=== PATIENT | female | born 1975 | race Hispanic/Latino ===

== ENCOUNTER 2019-04-21 22:49 | Emergency (ER) | payer SELFPAY ==
[2019-04-21] MEDS ORDERED: KETOROLAC 30 MG/ML INJ ONE (23:44)
[2019-04-21] MEDS ORDERED: MAGNESIUM CITRATE 300 ML BOT ONE (23:45)
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
[2019-04-22 02:01] VITALS: TEMP 98.7; O2SAT 100
[2019-04-22 02:04] VITALS: BP 189/109
--- NOTE | 2019-04-22 07:59 | RAD REPORT ---
EXAM DESCRIPTION: Susana Single View04/21/2019 11:42 pm CLINICAL HISTORY: Chest pain COMPARISON: none FINDINGS: The lungs appear clear of acute infiltrate. The heart is normal size IMPRESSION: No acute abnormalities displayed
== END 2019-04-22 00:45 | disposition home or self-care (01) ==
LOC: ER 22:49
DX: K59.00 Constipation, unspecified (principal)
CPT/HCPCS: 71045; 96372; 99283

== ENCOUNTER 2020-02-03 15:40 | Inpatient (IN) | payer SELFPAY ==
[2020-02-03] MEDS ORDERED: ONDANSETRON 4 MG/2 ML VIAL ONE (17:08)
[2020-02-03] MEDS ORDERED: MORPHINE 4 MG/ML SYR ONE ×2 (17:08→20:01)
[2020-02-03 17:15] LABS: Absolute Lymphocytes (CBC) 1.3 K/uL (0.7-4.9); Basophils % 0.5 % (0-1.3); Hematocrit 36.8 % (36.0-45.0); Lymphocytes % 15.3 % (15.3-44.8); MPV 8.9 fL (7.6-11.3); RBC Red Blood Cell Count 4.38 M/uL (3.86-4.86)
[2020-02-03 17:21] LABS: Albumin 3.5 g/dL (3.4-5.0); Bilirubin Total 0.2 mg/dL (0.2-1.0); Potassium 3.2 mmol/L (3.5-5.1); Protein, Total 8.2 g/dL (6.4-8.2)
--- NOTE | 2020-02-03 18:24 | P.HP ---
Certification for Inpatient Patient admitted to: Inpatient With expected LOS: >2 Midnights Patient will require the following post-hospital care: None Practitioner: I am a practitioner with admitting privileges, knowledge of patient current condition, hospital course, and medical plan of care. Services: Services provided to patient in accordance with Admission requirements found in Title 42 Section 412.3 of the Code of Federal Regulations Patient History Date of Service: 02/04/20 Reason for admission: Pain in Breast History of Present Illness: 44-year-old female with past medical history of diabetes, hypertension, hyperlipidemia, hypothyroidism, anxiety with panic attacks came with the pain and swelling in both the breasts which has been going on for the last 2 weeks and has been progressively worsening. Pain and swelling initially started and left breast associated with redness and discharge coming out of the wound on the left breast. Denies any previous history, she is not lactating, patient also developed pain and swelling in the right breast as well, no fever no chills, no nausea vomiting or diarrhea Patient was examined in the ER and was found to have cellulitis of the right breast and cellulitis with abscess collection on the left breast and was admitted for further management Allergies No Known Allergies Allergy (Verified 02/03/20 21:41) Home medications list reviewed: Yes - Past Medical/Surgical History Diabetic: Yes Past Medical History: Reviewed- Non-Contributory -: anemia-december 2012, also in 2011 -: DM -: HTN Past Surgical History: Reviewed- Non-Contributory -: tubal ligation-[place] [facility] 2002 - Family History Family History: Reviewed- Non-Contributory - Social History Smoking Status: Never smoker Alcohol use: Yes CD- Drugs: No Caffeine use: Yes Review of Systems 10-point ROS is otherwise unremarkable Physical Examination - Vital Signs Temperature: 98.2 F Blood Pressure: 133/88 Pulse: 89 Respirations: 18 - Physical Exam General: Alert, In no apparent distress, Oriented x3 HEENT: Atraumatic, Normocephalic Neck: Supple, 2+ carotid pulse no bruit Respiratory: Clear to auscultation bilaterally, Normal air movement Cardiovascular: Normal pulses, Regular rate/rhythm Capillary refill: <2 Seconds Gastrointestinal: Soft and benign, W/out hepatosplenomegaly Musculoskeletal: No clubbing, No swelling Integumentary: Rash(es), Tenderness/swelling, Erythema, Warmth, Other (Erythema and tenderness on the right breast, erythema tenderness and induration on the left breast with seropurulent discharge along with an area of small ulceration, ) Neurological: Normal speech, Normal strength at 5/5 x4 extr Lymphatics: No axilla or inguinal lymphadenopathy - Studies Laboratory Data (last 24 hrs) 02/03/20 16:55: Sodium 142, Potassium 3.2 L, BUN 15, Creatinine 1.04, Glucose 131 H, Total Bilirubin 0.2, AST 22, ALT 32, Alkaline Phosphatase 84 02/03/20 16:55: WBC 8.8, Hgb 12.4, Hct 36.8, Plt Count 237 Assessment and Plan - Problems (Diagnosis) (1) Left breast abscess Current Visit: Yes Status: Acute (2) Cellulitis of right breast Current Visit: Yes Status: Acute (3) Diabetes Current Visit: Yes Status: Acute Qualifiers: Diabetes mellitus type: type 2 Diabetes mellitus complication status: with skin complications - Advance Directives Does patient have a Living Will: No Does patient have a Durable POA for Healthcare: No Physician Review Additional Text: Abscess left breast Cellulitis of the right breast Diabetes Hypertension Hyperlipidemia Hypothyroid is Anxiety History panic attacks Plan monitor closely pain control IV antibiotics Surgical consult will get cultures from the discharge from breast Will change antibiotic as per the sensitivity Ultrasound of the breasts Insulin sliding scale Will get an A1c Continue home medications and titrate as needed GI/DVT prophylaxis Time Spent Managing Pts Care (In Minutes): 40
--- NOTE | 2020-02-03 18:26 | RAD REPORT ---
EXAM DESCRIPTION: US - Extremity Nonvascular Limited - 02/03/2020 5:59 pm CLINICAL HISTORY: Breast pain and swelling COMPARISON: None FINDINGS: 2.5 x 1.9 x 0.9 centimeter fluid collection is present within the upper outer right breast Edema is present within the left breast. A fluid collection is not noted IMPRESSION: 2.5 centimeter fluid collection within the upper-outer right breast likely an abscess Cellulitis left breast This all should be correlated clinically. After treatment has been completed follow-up mammography if not recently obtained an ultrasound would be helpful for re-evaluation
[2020-02-03] MEDS ORDERED: ONDANSETRON 4 MG/2 ML VIAL IV PRN (18:29)
[2020-02-03] MEDS ORDERED: ACETAMINOPHEN 500 MG TAB PO PRN (18:29)
[2020-02-03] MEDS ORDERED: ZOLPIDEM TARTRATE 10 MG TABLET PO PRN (18:34)
[2020-02-03] MEDS ORDERED: ACETAMINOPHEN PO PRN (18:34)
[2020-02-03] MEDS ORDERED: HYDROCODONE PO PRN (18:34)
[2020-02-03] MEDS ORDERED: ROPINIROLE HCL 0.25 MG TAB PO PRN (20:51)
[2020-02-03] MEDS: INSULIN -REGULAR HUMAN 50 UNIT/0.5 ML ML SQ SCH (21:00)
[2020-02-03] MEDS ORDERED: VANCOMYCIN 1.5 GM in NA CHLORIDE 0.9% 500 ML IVPB SCH (22:00)
[2020-02-03] MEDS: NA CHLORIDE 0.9% 1,000 ML IV SCH (22:04)
[2020-02-03] MEDS: QUETIAPINE 100MG TAB PO SCH (22:09)
[2020-02-03] MEDS: CITALOPRAM 10 MG TABLET PO SCH (22:09)
[2020-02-03] MEDS: HYDROCODONE/APAP 7.5/325 MG TAB PO PRN (22:19)
[2020-02-03 22:54] VITALS: BMI 27.8
[2020-02-03] MEDS ORDERED: POTASSIUM CL SA 10 MEQ TAB PO ONE (23:00)
[2020-02-03] MEDS ORDERED: NA CHLORIDE 0.9% 500 ML ONE (23:18)
[2020-02-03] MEDS ORDERED: VANCOMYCIN 1 GM/VIAL ONE (23:24)
[2020-02-03] MEDS ORDERED: VANCOMYCIN 500 MG/VIAL ONE (23:25)
[2020-02-03] MEDS: VANCOMYCIN 1.5 GM in NA CHLORIDE 0.9% 500 ML IVPB SCH (23:26)
[2020-02-03] MEDS: ALPRAZOLAM 1 MG TABLET PO PRN (23:33)
[2020-02-04] MEDS ORDERED: PIPER/TAZO/NS 3.375gm 3.375 GM/100 ML BAG ONE (00:46)
[2020-02-04] MEDS: PIPER/TAZO/NS 3.375gm 3.375 GM/100 ML BAG IVPB SCH ×3 (00:53→16:19)
[2020-02-04] MEDS: NA CHLORIDE 0.9% 1,000 ML IV SCH ×3 (05:00→15:00)
[2020-02-04 05:56] LABS: Absolute Lymphocytes (CBC) 1.9 K/uL (0.7-4.9); Basophils % 0.5 % (0-1.3); Hematocrit 29.9 % (36.0-45.0); Lymphocytes % 31.1 % (15.3-44.8); MPV 8.7 fL (7.6-11.3); RBC Red Blood Cell Count 3.53 M/uL (3.86-4.86)
[2020-02-04] MEDS: LEVOTHYROXINE SOD 0.05 MG TABLET PO SCH (06:00)
[2020-02-04 06:12] LABS: Albumin 2.5 g/dL (3.4-5.0); Bilirubin Total 0.2 mg/dL (0.2-1.0); Magnesium 2.2 mg/dL (1.8-2.4); Phosphorus 4.1 mg/dL (2.5-4.9); Potassium 3.2 mmol/L (3.5-5.1)
[2020-02-04] MEDS: KCL 20 MEQ/100 mL IVPB 20 MEQ/100 ML BAG IV SCH ×2 (07:25→10:26)
[2020-02-04] MEDS: INSULIN -REGULAR HUMAN 50 UNIT/0.5 ML ML SQ SCH ×4 (07:30→20:52)
[2020-02-04] MEDS: FERROUS FUMARATE PO SCH (09:00)
[2020-02-04] MEDS: ENOXAPARIN 40 MG/0.4 ML SQ SCH (09:00)
[2020-02-04] MEDS: FOLIC ACID PO SCH (09:00)
[2020-02-04] MEDS: MORPHINE 2 MG/ML SYR IV PRN (09:47)
--- NOTE | 2020-02-04 10:37 | P.PN ---
Subjective Date of Service: 02/04/20 Chief Complaint: Pain in Breast Subjective: No new changes (Still having lots of pain), Other (Still having pain No fever no chills) Review of Systems 10-point ROS is otherwise unremarkable Physical Examination - Vital Signs Temperature: 97.4 F Blood Pressure: 105/59 Pulse: 68 Respirations: 18 Pulse Ox (%): 97 - Physical Exam General: Alert, In no apparent distress HEENT: Atraumatic, Normocephalic Neck: Supple, 2+ carotid pulse no bruit Respiratory: Clear to auscultation bilaterally Cardiovascular: Normal pulses, Regular rate/rhythm Capillary refill: <2 Seconds Gastrointestinal: Soft and benign, W/out hepatosplenomegaly Musculoskeletal: No clubbing, No swelling Integumentary: Tenderness/swelling, Erythema, Warmth, Other (Left Breast tenderness and Induration , Right breast erythema and tenderness ) Neurological: Normal speech, Normal strength at 5/5 x4 extr Lymphatics: No axilla or inguinal lymphadenopathy Rectal: Deferred - Studies Laboratory Data (last 24 hrs) 02/03/20 16:55: Sodium 142, Potassium 3.2 L, BUN 15, Creatinine 1.04, Glucose 131 H, Total Bilirubin 0.2, AST 22, ALT 32, Alkaline Phosphatase 84 02/03/20 16:55: WBC 8.8, Hgb 12.4, Hct 36.8, Plt Count 237 Laboratory Last Values WBC 8.8 K/uL (4.3-10.9) 02/03/20 16:55 RBC 4.38 M/uL (3.86-4.86) 02/03/20 16:55 Hgb 12.4 g/dL (12.0-15.0) 02/03/20 16:55 Hct 36.8 % (36.0-45.0) 02/03/20 16:55 MCV 84.0 fL (80-100) D 02/03/20 16:55 MCH 28.3 pg (27.0-35.0) D 02/03/20 16:55 MCHC 33.7 g/dL (32.0-36.0) 02/03/20 16:55 RDW 15.6 % (12.1-15.2) H 02/03/20 16:55 Plt Count 237 K/uL (152-406) 02/03/20 16:55 MPV 8.9 fL (7.6-11.3) 02/03/20 16:55 Neutrophils % 73.9 % (41.7-73.7) H 02/03/20 16:55 Lymphocytes % 15.3 % (15.3-44.8) 02/03/20 16:55 Monocytes % 8.7 % (3.3-12.3) 02/03/20 16:55 Eosinophils % 1.6 % (0-4.4) 02/03/20 16:55 Basophils % 0.5 % (0-1.3) 02/03/20 16:55 Absolute Neutrophils 6.5 K/uL (1.8-8.0) 02/03/20 16:55 Absolute Lymphocytes 1.3 K/uL (0.7-4.9) 02/03/20 16:55 Absolute Monocytes 0.8 K/uL (0.1-1.3) 02/03/20 16:55 Absolute Eosinophils 0.1 K/uL (0-0.5) 02/03/20 16:55 Absolute Basophils 0.0 K/uL (0-0.5) 02/03/20 16:55 Sodium 142 mmol/L (136-145) 02/03/20 16:55 Potassium 3.2 mmol/L (3.5-5.1) L 02/03/20 16:55 Chloride 109 mmol/L (98-107) H 02/03/20 16:55 Carbon Dioxide 22 mmol/L (21-32) 02/03/20 16:55 BUN 15 mg/dL (7-18) 02/03/20 16:55 Creatinine 1.04 mg/dL (0.55-1.3) 02/03/20 16:55 Estimated GFR 58 mL/min (=/>90) L 02/03/20 16:55 Glucose 131 mg/dL (74-106) H 02/03/20 16:55 Hemoglobin A1c 6.3 % (4.2-6.3) 02/03/20 16:55 Lactic Acid 1.2 mmol/L (0.4-2.0) 02/03/20 16:55 Calcium 8.9 mg/dL (8.5-10.1) 02/03/20 16:55 Total Bilirubin 0.2 mg/dL (0.2-1.0) 02/03/20 16:55 AST 22 U/L (15-37) 02/03/20 16:55 ALT 32 U/L (12-78) 02/03/20 16:55 Alkaline Phosphatase 84 U/L (45-117) 02/03/20 16:55 Serum Total Protein 8.2 g/dL (6.4-8.2) 02/03/20 16:55 Albumin 3.5 g/dL (3.4-5.0) 02/03/20 16:55 Globulin 4.7 g/dL (2.3-3.5) H 02/03/20 16:55 Albumin/Globulin Ratio 0.7 (1.1-1.8) L 02/03/20 16:55 Procalcitonin < 0.05 ng/mL (<0.50) 02/03/20 16:55 Assessment & Plan - Problems (Diagnosis) (1) Left breast abscess Current Visit: Yes Status: Acute (2) Cellulitis of right breast Current Visit: Yes Status: Acute (3) Diabetes Current Visit: Yes Status: Acute Qualifiers: Diabetes mellitus type: type 2 Diabetes mellitus complication status: with skin complications Physician Review Additional Text: Abscess left breast Cellulitis of the right breast Diabetes Hypertension Hyperlipidemia Hypothyroid is Anxiety History panic attacks Plan monitor closely pain control IV antibiotics Surgical consult appreciated getting an incision and drainage today cultures from the discharge from breast painting Will change antibiotic as per the sensitivity Continue home medications and titrate as needed Insulin sliding scale GI/DVT prophylaxis Disposition : Getting incision and drainage today Continue antibiotic Dc once cleared by surgery Time Spent Managing Pts Care (In Minutes): 35
[2020-02-04] MEDS ORDERED: Ringers Lactate 0 ML IV ONE (10:53)
[2020-02-04] MEDS ORDERED: LIDOCAINE 2% MPF 5 ML VIAL ONE (10:54)
[2020-02-04] MEDS ORDERED: propofoL 200 MG/20 ML VIAL IV ONE (10:54)
[2020-02-04] MEDS ORDERED: MIDAZOLAM HCL 2 MG/2 ML INJ ONE (10:54)
[2020-02-04] MEDS ORDERED: NA CHLORIDE 0.9% 1,000 ML ONE (10:58)
[2020-02-04] MEDS ORDERED: BUPIVACAINE 0.5% PF 10 ML VIAL ONE ×2 (11:02→11:47)
[2020-02-04] MEDS ORDERED: FENTANYL CITR 100 MCG/2 ML ONE (11:21)
[2020-02-04] MEDS ORDERED: KETOROLAC 30 MG/ML INJ ONE (11:25)
[2020-02-04] MEDS ORDERED: dexAMETHasone 4 MG/ML VIAL ONE (11:26)
[2020-02-04] MEDS ORDERED: ONDANSETRON 4 MG/2 ML VIAL ONE (11:27)
[2020-02-04] MEDS ORDERED: BUPIVACAINE 0.25% PF 10 ML VIAL ONE (11:47)
--- NOTE | 2020-02-04 11:50 | P.BOP ---
Preoperative diagnosis: Bilateral breast Mastitis, cellulitis, abscess Postoperative diagnosis: same Primary procedure: 1. Right breast I&D complex abscess with breast biopsy Secondary procedure: 2. Left breast I&D complex abscess with breast biopsy Estimated blood loss: <10cc Specimen: bilateral breast biopsy, culture Findings: see dictatiom Anesthesia: General Complications: None Transferred to: Recovery Room Condition: Good
[2020-02-04 11:59] LABS: Urine Appearance CLEAR; Urine Blood NEGATIVE (NEG); Urine Color DK YELLOW; Urine Glucose 2+ (NEG); Urine Protein TRACE (NEG); Urine Specific Gravity >=1.030 (1.005-1.030)
[2020-02-04 12:14] LABS: Urine Bilirubin NEGATIVE (NEG); Urine Microscopic Reflex ORDER UMIC
[2020-02-04 12:34] LABS: Urine Bacteria <20 /HPF (<20); Urine Culture Reflex Order NOT NEEDED; Urine Mucus MOD /HPF (NONE SEEN); Urine RBC NONE SEEN /HPF (NONE SEEN)
--- NOTE | 2020-02-04 13:23 | OP ---
Date of Procedure: 02/04/2020 Surgeon: Olivier Jain MD Preoperative Diagnosis: Bilateral breast mastitis, cellulitis, abscess. Postoperative Diagnosis: Bilateral breast mastitis, cellulitis, and complex abscess. Procedure: 1.Incision and drainage of right breast complex abscess about 7 x 4 cm with incisional breast biopsy . 2.Incision and drainage of complex abscess left breast about 7 x 7 cm with incisional breast biopsy. Anesthesia: General plus local. Findings: Bilateral breast abscess complex, multiple loculations. Purulent discharge. Indications: This is a case of a 44-year-old patient who come with bilateral breast cellulitis and a bscess. She has been having that for the last 2 weeks, very painful, inflamed, erythematosus. Befor e that she states she did not have any masses in the breast area. The patient offered incision and d rainage of bilateral breast abscess with biopsies with benefits, alternatives, and risks including, b ut not limited to infection, bleeding, damage to adjacent structures, anesthesia complication, nonhea ling wound, MT, and even . She also understands this may not relieve the symptoms. She might n eed more than one surgical intervention. She will require wound care. She still have to do her mamm ogram and checked with the certified medical technician or primary doctor for malignancy even if the biopsy comes kenny k negative. She understood, signed a consent. Description Of Procedure: Patient was brought to the operating room, placed in supine position and a nesthesia was done without complication. A time-out was called. Bilateral breast area was prepped a nd draped in sterile fashion. Local anesthesia was applied followed by sharp incision of the skin, r emoving the necrotic tissue first of the left breast that led us into a complex abscess cavities with multiple loculations, so they were explored, opened, culture. The tissue was removed from the breas t, sent for biopsy. Profuse irrigation was done in the area. Hemostasis was obtained. The area was packed with wet-to-dry dressing. Then, we went to the opposite side from the left and moved to the right side. Once again, we put local anesthetic. We made a wide incision over the area to get into the abscess which shows multiple loculations that were explored, opened, irrigated and hemostasis obt ained. We packed the area with wet-to-dry dressing. Sponge count and instrument counts were correct . The patient tolerated the procedure well. Patient was sent to recovery in stable condition. HM/BEAN Voice ID: [id number] Report ID: [id number]
--- NOTE | 2020-02-04 15:55 | CON ---
Date of Consultation: 02/03/2020 Diagnosis: Bilateral breast cellulitis and abscess. History Of Present Illness: This is a case of a 44-year-old patient, comes to us with bilateral [address] st inflammation, redness, ulceration, purulent discharge. She thinks it happened after insect bite. She does not remember any trauma, any dysuria, hematuria, hematochezia, or melena. She does not rem ember her last mammogram time. Allergies: NONE. Medical Problems: Diabetes, hypertension, hyperlipidemia, anxiety, hypothyroidism, panic attack. Medications: Reviewed including Xanax, Celexa, Ambien, Seroquel, Requip, Vicodin. Social History: She does not smoke. She does not drink alcohol. Past Surgical History: Tubal ligation. Family History: Noncontributory. Review of Systems: Ten points otherwise unremarkable. Physical Examination: General: Patient is awake and alert. HEENT: Pupils are equal and reactive, anicteric. Neck: Supple. Chest: Clear. Heart: S1, S2. Abdomen: Soft and depressible. Breasts: Bilateral breasts erythema, left more than right. Induration present. Tenderness and fluc tuance present. There is already purulent discharge coming from the left and right breast. This is just the entire breast area. Physical exam is limited due to tenderness. Axillary area, no palpable masses. Pelvic: Deferred. Extremities: Good capillary refill. Laboratory Data: Blood work shows WBC count of 6.2, hemoglobin of 10.4. Potassium 3.2. Ultrasound shows a 2.5 fluid collection within the right breast with cellulitis present on the left b reast. Assessment: This is a 44-year-old patient with bilateral breast cellulitis and abscess. On palpatio n, present purulent discharge from the left breast. Even the ultrasound described a big abscess is t here clinically and fluctuance is present on the right side. I concur also with the ultrasound, it h as an abscess in that area. The patient understands the need for incision and drainage of bilateral breast abscess with breast biopsy. Risks include, but not limited to, infection, bleeding, damage to adjacent structures, anesthesia complication, myocardial infarction, and even . She also under stands this will require wound care, wet-to-dry dressing, and they will create some deformities of th e area. This will not captured through her formal mammograms. This will not relieve any symptoms. She might need more than one surgical intervention. She understood, signed a consent. The patient w as booked in OR. CARLOS/BEAN Voice ID: [id number] Report ID: [id number]
[2020-02-04] MEDS: HYDROCODONE/APAP 7.5/325 MG TAB PO PRN ×2 (16:40→22:47)
[2020-02-04] MEDS: VANCOMYCIN 1.5 GM in NA CHLORIDE 0.9% 500 ML IVPB SCH (18:23)
[2020-02-04] MEDS: QUETIAPINE 100MG TAB PO SCH (20:51)
[2020-02-04] MEDS: CITALOPRAM 10 MG TABLET PO SCH (20:51)
[2020-02-04] MEDS: ALPRAZOLAM 1 MG TABLET PO PRN (20:59)
[2020-02-05] MEDS: NA CHLORIDE 0.9% 1,000 ML IV SCH ×3 (00:17→21:00)
[2020-02-05] MEDS: PIPER/TAZO/NS 3.375gm 3.375 GM/100 ML BAG IVPB SCH ×3 (00:17→16:23)
[2020-02-05] MEDS: HYDROCODONE/APAP 7.5/325 MG TAB PO PRN ×4 (04:12→16:22)
[2020-02-05 05:46] LABS: BUN Blood Urea Nitrogen 15 mg/dL (7-18); Bicarbonate 22 mmol/L (21-32); Glucose Level 169 mg/dL (74-106); Potassium 3.9 mmol/L (3.5-5.1); Sodium Level 142 mmol/L (136-145)
[2020-02-05] MEDS: LEVOTHYROXINE SOD 0.05 MG TABLET PO SCH (06:00)
[2020-02-05] MEDS: INSULIN -REGULAR HUMAN 50 UNIT/0.5 ML ML SQ SCH ×4 (07:30→20:51)
[2020-02-05] MEDS: FERROUS FUMARATE PO SCH (07:58)
[2020-02-05] MEDS: FOLIC ACID PO SCH (07:58)
[2020-02-05] MEDS: ENOXAPARIN 40 MG/0.4 ML SQ SCH (08:11)
[2020-02-05] MEDS ORDERED: POTASSIUM CL SA 10 MEQ TAB PO ONE (09:00)
--- NOTE | 2020-02-05 11:27 | PN ---
Date of Progress Note: 02/05/2020 Patient seen and examined. Chart reviewed and case discussed with RN. Patient states she is still h aving significant amount of pain from her left breast from the cellulitis and abscess. Patient had I and D done yesterday on both sides. Medications: List reviewed. Physical Examination: Vital Signs: Temperature 97.8, heart rate 56, blood pressure 119/80, respirations 16, O2 98% on room air. General: Awake, alert, oriented x3. Slightly ill-appearing female. CV: S1, S2. Regular rate and rhythm. Peripheral pulses present. Respiratory: Moving air well bilaterally. No wheezing or stridor. No use of accessory muscles. Gastrointestinal: Abdomen is soft, nontender, nondistended. Positive bowel sounds. Extremities: No clubbing, cyanosis, or edema. 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 Patient's bilateral breasts have bandages, erythem a bilateral breasts. Incision site clean, dry, intact. Neuro: Cranial nerves 2 through 12 intact grossly. No focal neurological deficit. Speech is normal . Psych: Mood is okay. Affect is full. Insight and judgment are good. Laboratory Data: Sodium 142, potassium 3.9, chloride 114, CO2 of 22, BUN 15, creatinine 0.62, glucos e 169, calcium 7.3. Blood cultures, no growth to date. Wound cultures growing MRSA. Assessment And Plan: 44-year-old female with: 1.Right breast cellulitis and abscess 2.5 cm, status post I and D. Cultures growing out methicillin -resistant Staphylococcus aureus. Continue with intravenous antibiotics. Appreciate Dr. Jain's input. 2.Cellulitis of the left breast. Continue antibiotics. Cultures showing methicillin-resistant Stap hylococcus aureus. 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 Continue with sliding scale i nsulin. Monitor blood glucose levels. 4.Essential hypertension, stable. Continue home medications. 5.Mixed hyperlipidemia. Continue medications. Stable. 6.Hypothyroidism. Continue Synthroid. 7.Generalized anxiety disorder and panic attacks. We will continue selective serotonin reuptake inh ibitors. Plan: We will continue to monitor. Patient is still having significant amount of pain. Culture batsheva wing MRSA. Discharge in the next 24 hours depending on clinical improvement. /MODL Voice ID: [id number] Report ID: [id number]
[2020-02-05] MEDS: VANCOMYCIN 1.5 GM in NA CHLORIDE 0.9% 500 ML IVPB SCH (12:01)
--- NOTE | 2020-02-05 18:51 | PN ---
Date of Progress Note: 02/05/2020 Subjective: Status post I and D of bilateral breast abscess, doing better, no fever, tolerating diet . Objective: Intact surgical site. No purulent discharge. Plan: Checks cultures. Continue antibiotics for a week by mouth. If she gets discharged, follow up in my office in 1 week. Patient was advised about the importance of mammogram and checked again. CARLOS/BEAN Voice ID: [id number] Report ID: [id number]
[2020-02-05] MEDS: CITALOPRAM 10 MG TABLET PO SCH (20:17)
[2020-02-05] MEDS: MORPHINE 2 MG/ML SYR IV PRN (20:17)
[2020-02-05] MEDS: QUETIAPINE 100MG TAB PO SCH (20:18)
[2020-02-06] MEDS: HYDROCODONE/APAP 7.5/325 MG TAB PO PRN ×2 (00:06→08:23)
[2020-02-06] MEDS: PIPER/TAZO/NS 3.375gm 3.375 GM/100 ML BAG IVPB SCH ×2 (00:22→08:26)
[2020-02-06] MEDS: NA CHLORIDE 0.9% 1,000 ML IV SCH (00:25)
[2020-02-06 04:34] LABS: Basophils % 0.9 % (0-1.3); Hematocrit 30.3 % (36.0-45.0); Lymphocytes % 46.6 % (15.3-44.8); MPV 8.8 fL (7.6-11.3); RBC Red Blood Cell Count 3.59 M/uL (3.86-4.86)
[2020-02-06 04:48] LABS: BUN Blood Urea Nitrogen 13 mg/dL (7-18); Bicarbonate 23 mmol/L (21-32); Glucose Level 91 mg/dL (74-106); Potassium 3.4 mmol/L (3.5-5.1); Sodium Level 144 mmol/L (136-145)
[2020-02-06] MEDS: VANCOMYCIN 1.5 GM in NA CHLORIDE 0.9% 500 ML IVPB SCH (05:23)
[2020-02-06] MEDS: LEVOTHYROXINE SOD 0.05 MG TABLET PO SCH ×2 (05:23→05:25)
[2020-02-06] MEDS: MORPHINE 2 MG/ML SYR IV PRN (05:27)
[2020-02-06] MEDS ORDERED: POTASSIUM CL SA 10 MEQ TAB PO ONE (06:38)
[2020-02-06] MEDS: INSULIN -REGULAR HUMAN 50 UNIT/0.5 ML ML SQ SCH (07:30)
[2020-02-06] MEDS: ENOXAPARIN 40 MG/0.4 ML SQ SCH (08:24)
[2020-02-06 09:38] VITALS: O2SAT 92
[2020-02-06 09:54] VITALS: BP 143/92; TEMP 96.7
--- NOTE | 2020-02-06 17:15 | EDPHYS ---
Physician Documentation [facility] Name: Jelly Hooker Age: 44 yrs Sex: Female : 1975 Arrival Date: 02/03/2020 Time: 15:42 Bed 17 Private MD: ED Physician Arsalan Domingo HPI: 02/02 17:31 This 44 yrs old Female presents to ER via Ambulatory with complaints of Insect jmm Bite. 17:31 The patient presents with an abscess of the chest. Onset: The symptoms/episode jmm began/occurred gradually, 3 day(s) ago. Possible cause(s): spider bite. Associated signs and symptoms: Pertinent positives: discharge, drainage, erythema, swelling, Pertinent negatives: fever. Modifying factors: the symptoms are alleviated by nothing, the symptoms are aggravated by nothing. This is a 44 year old female with a history of DM that presents to the ED with complaints of pain and swelling to her breasts. Patient states having bites to her face as well which have healed. States wounds began to drain at her breasts today. . 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 - Social history:: Smoking status: Patient denies any tobacco usage or history of. ROS: 17:31 Constitutional: Negative for fever, chills, and weight loss, Cardiovascular: Negative jmm for chest pain, palpitations, and edema, Respiratory: Negative for shortness of breath, cough, wheezing, and pleuritic chest pain. 17:31 Skin: Positive for erythema, rash, swelling. 17:31 All other systems are negative. Exam: 17:31 Constitutional: This is a well developed, well nourished patient who is awake, alert, jmm and in no acute distress. Head/Face: atraumatic. Eyes: EOMI, no conjunctival erythema appreciated ENT: Moist Mucus Membranes Neck: Trachea midline, Supple 17:31 Cardiovascular: Regular rate and rhythm. No edema appreciated Respiratory: Normal respirations, no respiratory distress appreciated Abdomen/GI: Non distended, soft Back: Normal ROM 17:31 Chest/axilla: Breasts: abscess, cellulitis, that is moderate, of the left breast, swelling, that is moderate, that is severe, of the right breast, of the left breast. 17:31 Skin: erythema and induration appreciated to the left breast, TTP. 17:31 Neuro: Orientation: is normal, Mentation: is normal, Memory: is normal. 17:31 Psych: Behavior/mood is pleasant, cooperative. Vital Signs: 15:51 BP 133 / 88; Pulse 89; Resp 18; Temp 98.0(O); Pulse Ox 100% on R/A; ph 17:00 BP 127 / 93; Pulse 79; Resp 16 S; Pulse Ox 98% on R/A; ca1 17:59 BP 116 / 82; Pulse 69; Resp 16 S; Pulse Ox 100% on R/A; ca1 20:27 BP 125 / 88; Pulse 88; Resp 18; Temp 97.6(O); Pulse Ox 99% on R/A; aj1 MDM: 16:02 Patient medically screened. [facility] 18:02 Data reviewed: vital signs, nurses notes. Counseling: I had a detailed discussion with hudson the patient and/or guardian regarding: the historical points, exam findings, and any diagnostic results supporting the discharge/admit diagnosis, lab results, the need for further work-up and treatment in the hospital. ED course: I discussed the patient with Dr. Hung whom accepted admission. . 18:06 ED course: I discussed the patient with Dr. Jain whom will consult on admission. . [facility] 02/02 16:38 Order name: CBC with Diff; Complete Time: 17:23 [facility] 02/02 16:38 Order name: CMP; Complete Time: 17:23 [facility] 02/02 16:38 Order name: Lactate; Complete Time: 17:23 [facility] 02/02 16:38 Order name: Procalcitonin; Complete Time: 17:54 [facility] 02/02 16:38 Order name: Blood Culture Adult (2) [facility] 02/02 17:22 Order name: Blood Culture [facility] 02/02 17:22 Order name: Blood Culture [facility] 02/02 17:56 Order name: Wound Culture ca1 02/02 18:35 Order name: Urinalysis [facility] 02/02 18:35 Order name: CBC with Automated Diff [facility] 02/02 18:35 Order name: CBC with Automated Diff [facility] 02/02 18:35 Order name: Comprehensive Metabolic Panel [facility] 02/02 18:35 Order name: Comprehensive Metabolic Panel [facility] 02/02 18:35 Order name: Magnesium [facility] 02/02 16:38 Order name: Saline Lock; Complete Time: 16:59 [facility] 02/02 16:39 Order name: US Extrmty Nonvasular Limited; Complete Time: 18:27 [facility] 02/02 18:34 Order name: CONS Physician Consult [facility] 02/02 18:34 Order name: Consistent Carb (ADA) 1800 Lc [facility] 02/02 18:35 Order name: Magnesium [facility] 02/02 18:36 Order name: Phosphorus [facility] 02/02 18:36 Order name: Phosphorus [facility] 02/02 19:20 Order name: Hemoglobin A1c; Complete Time: 19:22 [facility] Administered Medications: 16:57 Drug: Zofran (Ondansetron) 4 mg Route: IVP; Site: right antecubital; ca1 17:00 Drug: morphine 4 mg {Note: RASS - 0.} Route: IVP; Site: right antecubital; ca1 19:45 Drug: morphine 4 mg Route: IVP; Site: right antecubital; aj1 Disposition: 02/03 07:43 Co-signature as Attending Physician, Arsalan Domingo MD I agree with the assessment and mykel plan of care. Disposition: 02/03/20 21:19 Hospitalization ordered by Arthur Hung for Observation. Preliminary diagnosis are Cellulitis of the Breast, Abscess of the Breast. - Bed requested for Telemetry/MedSurg (observation). - Status is Observation. aj1 - Condition is Stable. - Problem is new. - Symptoms are unchanged. Signatures: Dispatcher [employer] [facility] Ashlie Read RN RN aj1 Arsalan Domingo MD MD cha Mickail, Joel, PA PA Amie Bautista RN RN ph Chica Case RN RN cg Armida Chen RN RN ca1 Corrections: (The following items were deleted from the chart) 02/02 19:50 18:03 Hospitalization Ordered by Arthur Hung MD for Observation. Preliminary cg diagnosis is Cellulitis of the Breast; Abscess of the breast. Bed requested for Telemetry/MedSurg (observation). Status is Observation. Condition is Stable. Problem is new. Symptoms are unchanged. [facility] 21:14 19:50 02/03/2020 18:03 Hospitalization Ordered by Arthur Hung MD for Observation. aj1 Preliminary diagnosis is Cellulitis of the Breast; Abscess of the breast. Bed requested for Telemetry/MedSurg (observation). Status is Observation. Condition is Stable. Problem is new. Symptoms are unchanged. 21:20 21:19 Hospitalization Ordered by Arthur Hung MD for Observation. Preliminary aj1 diagnosis is Cellulitis of the Breast; Abscess of the Breast. Bed requested for Telemetry/MedSurg (observation). Status is Observation. Condition is Stable. Problem is new. Symptoms are unchanged. hudson
--- NOTE | 2020-02-06 17:15 | ER ---
Nurse's Notes [facility] Name: Jelly Hooker Age: 44 yrs Sex: Female : 1975 Arrival Date: 02/03/2020 Time: 15:42 Bed 17 Private MD: Diagnosis: Cellulitis of the Breast;Abscess of the Breast Presentation: 02/02 15:51 Chief complaint: Patient states: Swelling and wound to L cheek area that has been ph improving, states, " I thought it was a spider bite but then I got one on my breast." Swelling and redness noted to L breast, open area in center that appears to be draining, denies fever, N/V/D. Coronavirus screen: Patient denies a cough. Patient denies shortness of breath or difficulty breathing. Patient denies measured and/or subjective temperature greater than 100.4F prior to today's visit. Patient denies travel on a cruise ship or to a country the [facility] currently lists as an affected area. Patient denies contact with known and/or suspected case of COVID-19. Ebola Screen: No symptoms or risks identified at this time. Initial Sepsis Screen: Does the patient meet any 2 criteria? No. Patient's initial sepsis screen is negative. Does the patient have a suspected source of infection? Yes: Skin breakdown/wound. Risk Assessment: Do you want to hurt yourself or someone else? Patient reports no desire to harm self or others. Onset of symptoms was February 03, 2020. 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 - Social history:: Smoking status: Patient denies any tobacco usage or history of. Screenin:05 Abuse screen: Denies threats or abuse. Denies injuries from another. Nutritional ca1 screening: No deficits noted. Tuberculosis screening: No symptoms or risk factors identified. Fall Risk IV access (20 points). Assessment: 16:05 General: Appears in no apparent distress. comfortable, Behavior is calm, cooperative, ca1 appropriate for age. Pain: Complains of pain in right breast and left breast Pain currently is 6 out of 10 on a pain scale. Pain began 2-3 days ago. Neuro: Level of Consciousness is awake, alert, obeys commands, Oriented to person, place, time, situation. Cardiovascular: Heart tones S1 S2 present Capillary refill < 3 seconds Patient's skin is warm and dry. Respiratory: Airway is patent Respiratory effort is even, unlabored, Respiratory pattern is regular, symmetrical, Breath sounds are clear bilaterally. GI: Abdomen is round non-distended, Bowel sounds present X 4 quads. Abd is soft and non tender X 4 quads. : No signs and/or symptoms were reported regarding the genitourinary system. EENT: No signs and/or symptoms were reported regarding the EENT system. Derm: Skin is healthy with good turgor, Skin is pink, warm \\T\\ dry. Abscess located on left breast is nickel sized, has purulent drainage, is hot to touch, is red, is raised. Musculoskeletal: Circulation, motion, and sensation intact. Capillary refill < 3 seconds. 16:39 Reassessment: served as carperone during breast exam with ADRIANA Loya, pt has large are of iw redness and swelling around each breast, abscess noted to each breast that has been draining, pt states has been there for past three days. 17:55 Reassessment: Patient appears in no apparent distress at this time. Patient and/or ca1 family updated on plan of care and expected duration. Pain level reassessed. Patient is alert, oriented x 3, equal unlabored respirations, skin warm/dry/pink. Dr. Hung at bedside. 19:30 General: Appears in no apparent distress. uncomfortable, Behavior is calm, cooperative, aj1 appropriate for age. Pain: Complains of pain in left breast and right breast. Neuro: Level of Consciousness is awake, alert, obeys commands, Oriented to person, place, time, situation. Cardiovascular: Patient's skin is warm and dry. Respiratory: Airway is patent Respiratory effort is even, unlabored, Respiratory pattern is regular, symmetrical. GI: No signs and/or symptoms were reported involving the gastrointestinal system. : No signs and/or symptoms were reported regarding the genitourinary system. EENT: No signs and/or symptoms were reported regarding the EENT system. Derm: Skin is pink, warm \\T\\ dry. Redness noted to bilateral breasts with some purulent drainage. Musculoskeletal: Circulation, motion, and sensation intact. 20:30 Reassessment: Patient appears in no apparent distress at this time. No changes from aj1 previously documented assessment. 21:12 Reassessment: report given to Bin COY. jd3 21:12 Reassessment: Patient appears in no apparent distress at this time. No changes from aj1 previously documented assessment. Patient and/or family updated on plan of care and expected duration. Pain level reassessed. Patient is alert, oriented x 3, equal unlabored respirations, skin warm/dry/pink. Vital Signs: 15:51 BP 133 / 88; Pulse 89; Resp 18; Temp 98.0(O); Pulse Ox 100% on R/A; ph 17:00 BP 127 / 93; Pulse 79; Resp 16 S; Pulse Ox 98% on R/A; ca1 17:59 BP 116 / 82; Pulse 69; Resp 16 S; Pulse Ox 100% on R/A; ca1 20:27 BP 125 / 88; Pulse 88; Resp 18; Temp 97.6(O); Pulse Ox 99% on R/A; aj1 ED Course: 15:42 Patient arrived in ED. ag5 15:48 Vincenzo Olguin PA is PHCP. [facility] 15:48 Arsalan Domingo MD is Attending Physician. [facility] 15:56 Triage completed. ph 15:58 Arm band placed on Patient placed in an exam room. ph 16:05 Patient has correct armband on for positive identification. Placed in gown. Bed in low ca1 position. Call light in reach. Side rails up X 1. Pulse ox on. NIBP on. Warm blanket given. 16:19 Armida Chen RN is Primary Nurse. ca1 16:55 No provider procedures requiring assistance completed. Inserted saline lock: 20 gauge ca1 in right antecubital area, using aseptic technique. Blood collected. 16:55 Initial lab(s) drawn, by me, sent to lab. First set of blood cultures drawn by me. ca1 17:13 Second set of blood cultures drawn by me. ca1 17:14 Inserted saline lock: 20 gauge in left forearm, using aseptic technique. Blood ca1 collected. 17:57 US Extrmty Nonvasular Limited In Process Unspecified. EDMS 18:02 Arthur Hung MD is Hospitalizing Provider. jmm 18:02 Wound culture swab sent to lab. ca1 19:15 Report given to ANNELIESE Dailey. ca1 20:00 Wound care: to abscess located on left breast and right breast was cleaned with aj1 Hibiclens, dressed with 4X4s, Patient tolerated well. 21:13 Patient admitted, IV remains in place. aj1 21:19 Arthur Hung MD is Hospitalizing Provider. jmm Administered Medications: 16:57 Drug: Zofran (Ondansetron) 4 mg Route: IVP; Site: right antecubital; ca1 17:00 Drug: morphine 4 mg {Note: RASS - 0.} Route: IVP; Site: right antecubital; ca1 19:45 Drug: morphine 4 mg Route: IVP; Site: right antecubital; aj1 Outcome: 18:03 Decision to Hospitalize by Provider. jmm 21:13 Admitted to Med/surg accompanied by tech, via wheelchair. aj1 21:13 Condition: good 21:13 Discharge instructions given to patient, Instructed on the need for admit, Demonstrated understanding of instructions. 21:19 Decision to Hospitalize by Provider. jmm 21:20 Patient left the ED. aj1 Signatures: Dispatcher [employer] [facility] Ashlie Read, ANNELIESE RN aj1 Vincenzo Olguin PA PA [facility] Jennyfer Carlson ph D, RN RN iw Hall, Patricia, RN RNavies, Jonathon, RN RN jd3 Acob, Cheryl, RN RN ca1 [place] ag5
--- NOTE | 2020-02-06 23:24 | DS ---
Date of Discharge: 02/06/2020 Consultants: Dr. Jain. Procedures: By Dr. aJin on 02/04/2020, incision and drainage of right breast complex abscess with 7 x 4 cm with incisional breast biopsy, incision and drainage of complex abscess, left breast 7 x 7 cm with incisional breast biopsy. Admitting Diagnosis: 1. Abscess of the left breast. 2. Cellulitis of the right breast. 3. Diabetes mellitus, type 2, ypr-[id number]-wyvabbovp with hyperglycemia. 4. Essential hypertension. 5. Mixed hyperlipidemia. 6. Generalized anxiety disorder. 7. History of panic attacks. 8. Hypothyroidism. Patient no longer taking medications. Discharge Diagnoses: 1. Right breast cellulitis and abscess status post incision and drainage. 2. Cellulitis of left breast positive for methicillin resistant Staphylococcus aureus. 3. 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 4. Essential hypertension, stable. 5. Mixed hyperlipidemia, stable. 6. Hypothyroidism. Patient states that she no longer takes Synthroid. 7. Generalized anxiety disorder with panic attacks. Continue SSRI. Hospital Course: Patient is a 44-year-old female, came to the hospital for pain in her breasts. Patient has history of diabetes, hypertension, hyperlipidemia, anxiety, panic attacks. Patient had some redness, swelling and discharge out of the wound on the left breast. She was started on antibiotics. Cultures were obtained. Wound culture grew out MRSA. Blood cultures were negative. She was seen by Dr. Jain. He performed incision and drainage of both breasts abscesses and biopsies. Biopsy results are pending. She will need to follow up with Dr. Jain to obtain those results to ensure no cancerous lesion. Potassium level was low and was replaced. Overall, patient did well. Her pain improved. She had no signs of sepsis. Vital signs were stable. White blood cell count was normal. She was then cleared for discharge. She was sent home on antibiotics and she will need to follow up with primary care physician in 2-3 days. Follow up with general surgeon, Dr. Jain in 1 week. Return to ER for worsening condition. Wound instructions per Dr. Jain. Diet: Diabetic. Activity: As tolerated. Physical Examination: General: Awake, alert, oriented x3. No acute distress. CV: S1, S2. Respiratory: Moving air well bilaterally. Abdomen: Soft, nontender, nondistended. Positive bowel sounds. Extremities: No clubbing, cyanosis, edema. Neurologic: Nonfocal. Skin: Evaluated with female nurse, Marianela present at the bedside. Incision site on the breast is clean, dry, intact. No drainage. Total time spent discharging patient was 35 minutes. /BEAN Voice ID: [id number] Report ID: [id number] CRIS
[2020-02-07] MEDS ORDERED: FE SULF/FA/VIT B COMP & C TAB PO SCH (08:00)
== END 2020-02-06 10:47 | disposition home or self-care (01) | DRG 585 ==
LOC: ER 15:40 → ERHOLD 18:30 → 2ND 20:53
PROVIDERS: ADMIT Family Medicine; ATTEND Family Medicine
PROC: 0H9T0ZZ Drainage of Right Breast, Open Approach (ICD-10-PCS; 2020-02-04)
PROC: 0HBU0ZX Excision of Left Breast, Open Approach, Diagnostic (ICD-10-PCS; principal; 2020-02-04 11:00)
DX: N61.1 Abscess of the breast and nipple (principal); B95.62 Methicillin resistant Staphylococcus aureus infection as the cause of diseases classified elsewhere; I10 Essential (primary) hypertension; E11.628 Type 2 diabetes mellitus with other skin complications; E03.9 Hypothyroidism, unspecified; E11.65 Type 2 diabetes mellitus with hyperglycemia; E78.2 Mixed hyperlipidemia; F41.1 Generalized anxiety disorder; F41.0 Panic disorder [episodic paroxysmal anxiety]; Z90.710 Acquired absence of both cervix and uterus; Z79.84 Long term (current) use of oral hypoglycemic drugs; Z98.51 Tubal ligation status; Z79.899 Other long term (current) drug therapy
CPT/HCPCS: 36415; 76882; 80048; 80053; 80202; 81003; 81015; 82947; 83036; 83605; 83735; 84100; 84132; 84145; 85025; 87040; 87070; 87075; 87077; 87186; 87205; 88304; 88305; 94760; 96374; 96375; 99285; J1650; J2250; J2270; J2405; J2543; J2704; J3010; J7030; J7040; J7120

== ENCOUNTER 2021-03-27 15:29 | Emergency (ER) | payer SELFPAY ==
--- NOTE | 2021-03-27 16:32 | ER ---
Nurse's Notes [facility] Name: Jelly Hooker Age: 45 yrs Sex: Female : 1975 Arrival Date: 03/27/2021 Time: 15:34 Bed Treatment Private MD: Diagnosis: Foreign body in left ear, initial encounter Presentation: 03/27 15:59 Chief complaint: Patient states: the rubber tip of the ear phones/buds is stuck on my L ca1 ear since early this morning. Coronavirus screen: Client denies travel out of the [place] in the last 14 days. At this time, the client does not indicate any symptoms associated with coronavirus-19. Ebola Screen: Patient negative for fever greater than or equal to 101.5 degrees Fahrenheit, and additional compatible Ebola Virus Disease symptoms Patient denies exposure to infectious person. Patient denies travel to an Ebola-affected area in the 21 days before illness onset. No symptoms or risks identified at this time. Initial Sepsis Screen: Does the patient meet any 2 criteria? No. Patient's initial sepsis screen is negative. Does the patient have a suspected source of infection? No. Patient's initial sepsis screen is negative. Risk Assessment: Do you want to hurt yourself or someone else? Patient reports no desire to harm self or others. Onset of symptoms was March 27, 2021. 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 Flu vaccine is up to date. - Social history:: Smoking status: Patient denies any tobacco usage or history of. Screenin:04 Abuse screen: Denies threats or abuse. Denies injuries from another. Nutritional ca1 screening: No deficits noted. Tuberculosis screening: No symptoms or risk factors identified. Fall Risk None identified. Assessment: 16:04 General: Appears in no apparent distress. comfortable, Behavior is calm, cooperative, ca1 appropriate for age. Pain: Complains of pain in left ear Pain currently is 3 out of 10 on a pain scale. Neuro: Level of Consciousness is awake, alert, obeys commands, Oriented to person, place, time, situation. EENT: Tympanic membrane not visualized left ear Ear canal w/ foreign body noted from left ear. Derm: Skin is intact, is healthy with good turgor, Skin is pink, warm \T\ dry. Musculoskeletal: Circulation, motion, and sensation intact. Capillary refill < 3 seconds. 16:41 Reassessment: Patient appears in no apparent distress at this time. Patient is ca1 alert/active/playful, equal unlabored respirations, skin warm/dry/pink. Patient states feeling better. Vital Signs: 15:59 Pulse 90; Resp 18 S; Temp 97.1(TE); Pulse Ox 98% ; Weight 77.11 kg (R); Height 5 ft. 7 ca1 in. (170.18 cm) (R); Pain 3/10; 16:01 BP 127 / 91; ca1 16:41 BP 127 / 85; Pulse 85; Resp 16 S; Pulse Ox 98% on R/A; ca1 15:59 Body Mass Index 26.63 (77.11 kg, 170.18 cm) ca1 ED Course: 15:34 Patient arrived in ED. mr 16:01 Triage completed. ca1 16:01 Arm band placed on right wrist. ca1 16:03 Armida Chen RN is Primary Nurse. ca1 16:04 Patient has correct armband on for positive identification. Bed in low position. Call ca1 light in reach. Side rails up X 1. Pulse ox on. NIBP on. 16:06 Arsalan Meza PA is PHCP. cp 16:06 Reynold Romero MD is Attending Physician. cp 16:41 No provider procedures requiring assistance completed. Patient did not have IV access ca1 during this emergency room visit. Removal of Foreign body removed earbud from left ear canal. using Alligator clamps, Patient tolerated well. Administered Medications: No medications were administered Outcome: 16:31 Discharge ordered by . cp 16:42 Discharged to home ambulatory, with family. ca1 16:42 Condition: stable 16:42 Discharge instructions given to patient, Instructed on discharge instructions, follow up and referral plans. Demonstrated understanding of instructions, follow-up care. 16:42 Patient left the ED. ca1 Signatures: Nickie Orlando mr Arsalan Meza PA PA cp Armida Chen RN RN ca1
--- NOTE | 2021-03-27 16:32 | EDPHYS ---
Physician Documentation [facility] Name: Jelly Hooker Age: 45 yrs Sex: Female : 1975 Arrival Date: 03/27/2021 Time: 15:34 Bed Treatment Private MD: ED Physician Reynold Romero HPI: 03/27 16:25 This 45 yrs old Female presents to ER via Ambulatory with complaints of cp Foreign Body In Ear. 16:25 The patient presents with a foreign body sensation, plastic piece of ear bud. cp 16:25 The complaints affect the left ear. Onset: The symptoms/episode began/occurred today. cp Associated signs and symptoms: The patient has no apparent associated signs or symptoms. Severity of symptoms: in the emergency department the symptoms are unchanged despite home interventions. 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 Flu vaccine is up to date. - Social history:: Smoking status: Patient denies any tobacco usage or history of. ROS: 16:27 Eyes: Negative for injury, pain, redness, and discharge. cp 16:27 Constitutional: Negative for body aches, chills, fever. 16:27 ENT: Positive for foreign body left ear canal. 16:27 Cardiovascular: Negative for chest pain. 16:27 Respiratory: Negative for cough, shortness of breath, wheezing. 16:27 Abdomen/GI: Negative for abdominal pain, nausea, vomiting, and diarrhea. 16:27 Skin: Negative for rash. 16:27 All other systems are negative. Exam: 16:28 Head/Face: Normocephalic, atraumatic. cp 16:28 Constitutional: The patient appears in no acute distress, alert, awake, comfortable, well developed, well nourished. 16:28 ENT: External ear(s): are unremarkable, Ear canal(s): foreign body, plastic piece of ear bud, in the left external ear canal, Examination of the other ear shows no obvious abnormality, Nose: is normal, Mouth: is normal. 16:28 Chest/axilla: Inspection: normal. 16:28 Cardiovascular: Rate: normal. 16:28 Respiratory: the patient does not display signs of respiratory distress, Respirations: normal. 16:28 Skin: no rash present. Vital Signs: 15:59 Pulse 90; Resp 18 S; Temp 97.1(TE); Pulse Ox 98% ; Weight 77.11 kg (R); Height 5 ft. 7 ca1 in. (170.18 cm) (R); Pain 3/10; 16:01 BP 127 / 91; ca1 16:41 BP 127 / 85; Pulse 85; Resp 16 S; Pulse Ox 98% on R/A; ca1 15:59 Body Mass Index 26.63 (77.11 kg, 170.18 cm) ca1 Procedures: 16:29 Foreign Body Removal: plastic piece of ear bud, from the left ear canal, by using cp alligator clamps, The patient tolerated the removal well. MDM: 16:09 Patient medically screened. cp 16:30 Differential diagnosis: otitis media, otitis externa, ruptured TM, foreign body, cp cerumen impaction, barotrauma . Data reviewed: vital signs, nurses notes, and as a result, I will discharge patient. Counseling: I had a detailed discussion with the patient and/or guardian regarding: the historical points, exam findings, and any diagnostic results supporting the discharge/admit diagnosis, to return to the emergency department if symptoms worsen or persist or if there are any questions or concerns that arise at home. Response to treatment: the patient's symptoms have resolved after treatment, foreign body removed, and as a result, I will discharge patient. Administered Medications: No medications were administered Disposition Summary: 03/27/21 16:31 Discharge Ordered Location: Home cp Problem: new cp Symptoms: are resolved cp Condition: Stable cp Diagnosis - Foreign body in left ear, initial encounter cp Followup: cp - With: Emergency Department - When: As needed - Reason: Worsening of condition Discharge Instructions: - Discharge Summary Sheet cp - Ear Foreign Body cp Forms: - Medication Reconciliation Form cp - Thank You Letter cp - Antibiotic Education cp - Prescription Opioid Use cp Signatures: Arsalan Meza PA PA cp Acob, Cheryl RN RN ca1
[2021-03-27 16:47] VITALS: TEMP 97.1; O2SAT 98
[2021-03-27 16:50] VITALS: BP 127/85
== END 2021-03-27 16:42 | disposition home or self-care (01) ==
LOC: ER 15:29
PROC: 09C4XZZ Extirpation of Matter from Left External Auditory Canal, External Approach (ICD-10-PCS; principal; 2021-03-27)
DX: T16.2XXA Foreign body in left ear, initial encounter (principal); I10 Essential (primary) hypertension
CPT/HCPCS: 99283

== ENCOUNTER 2021-04-10 20:35 | Emergency (ER) | payer SELFPAY ==
--- OUTSIDE RECORDS SUMMARY | 2021-04-10 20:38 | XMS REPORT | Continuity of Care Document ---
:1975 Author Organization [facility] t Address [address] [place] [address] Dr. [address] [place] [address] Care Team Providers Name Role Phone Doctor Unassigned, Name Attending Clinician Unavailable Mauricio Soliz DO Attending Clinician Davion Enriquez MD Attending Clinician Problems This patient has no known problems. Allergies, Adverse Reactions, Alerts This patient has no known allergies or adverse reactions. Medications This patient has no known medications. Procedures This patient has no known procedures. Encounters Start End Encounter Admission Attending Care Care Encounter Source Date/Time Date/Time Type Type Clinicians Facility Department ID 2021-03-21 2021-03-21 Orders Doctor ELIAS [id number] 00:00:00 00:00:00 Only Unassigned, ANIL [id number] Nambe [facility] [id number] 2020-11-22 2020-11-22 Patient JENNIFER Soliz [id number] 00:00:00 00:00:00 Outreach Ramirez MOORE [id number] Mauricio [facility] [id number] SON [id number] 2020-03-15 2020-03-15 Telemedici JENNIFER Enriquez 1.2.840.114 [id number] 08:15:02 08:30:02 ne Visit Guille Marrero [id number] Davion Mistry [id number] Professio [phone] [address] 2020-03-12 2020-03-12 Refill [facility] [id number] 00:00:00 00:00:00 [facility] [id number] [facility] [place] [id number] Professio [phone] [place] [address] [address] 2020-03-12 2020-03-12 [facility] 1.2.840.114 [id number] 00:00:00 00:00:00 [facility] [id number] Edward [place] [id number] Professio [phone] [place] [address] [address] 2020-03-11 2020-03-11 [facility] 1.2.840.114 [id number] 00:00:00 00:00:00 [facility] [id number] Edward [place] [id number] Professio [phone] [place] [address] [address] 2020-03-09 2020-03-09 [facility] [id number] 00:00:00 00:00:00 [facility] [id number] [facility] [place] [id number] Professio [phone] [place] [address] [address] [facility] One 2020-03-09 2020-03-09 [facility] 1.2.840.114 [id number] 00:00:00 00:00:00 [facility] [id number] [facility] [place] [id number] Professio [phone] [place] [address] [address] 2020-03-06 2020-03-06 [facility] 1.2.840.114 [id number] 00:00:00 00:00:00 [facility] [id number] Edward [place] [id number] Professio [phone] [place] [address] [address] 2020-02-14 2020-02-14 Telephone [facility] 1.2.840.114 [id number] 00:00:00 00:00:00 [facility] [id number] Edward [place] [id number] Professio [phone] [place] [address] [address] 2020-02-13 2020-02-13 [facility] 1.2.840.114 [id number] 00:00:00 00:00:00 [facility] [id number] Edward [place] [id number] Professio [phone] [place] [address] [address] 2020-02-09 2020-02-09 [facility] 1.2.840.114 [id number] 00:00:00 00:00:00 [facility] [id number] Edward [place] [id number] Professio [phone] [place] [address] [address] 2020-02-08 2020-02-08 [facility] 1.2.840.114 [id number] 00:00:00 00:00:00 [facility] [id number] [facility] [place] [id number] Professio [phone] [place] [address] [address] 2020-01-10 2020-01-10 [facility] [id number] 00:00:00 00:00:00 [facility] [id number] Edward [place] [id number] Professio [phone] [place] [address] [address] 2019-11-08 2019-11-08 Orders Doctor ELIAS 1.2.840.114 [id number] 00:00:00 00:00:00 Only Unassigned, ANIL [id number] [facility] [id number] Results This patient has no known results.
--- NOTE | 2021-04-10 23:57 | EDPHYS ---
Physician Documentation [facility] Name: Jelly Hooker Age: 45 yrs Sex: Female : 1975 Arrival Date: 04/10/2021 Time: 20:38 Bed 12 Private MD: ED Physician Victor Manuel Cazares HPI: 04/10 23:35 This 45 yrs old Female presents to ER via Ambulatory with complaints of Insect pkl Bite - PT STATES IT WAS A SPIDER, INFECTED-HOT TO TOUCH AND RED. 23:35 The patient presents with an abscess of the . Description: The affected area is pkl moderate sized, approximately 3 cm(s), fluctuant, tense. Onset: The symptoms/episode began/occurred 2 day(s) ago. Associated signs and symptoms: The patient has no apparent associated signs or symptoms. 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 - Social history:: Smoking status: Patient denies any tobacco usage or history of. ROS: 04/10 23:35 Eyes: Negative for injury, pain, redness, and discharge, ENT: Negative for injury, pkl pain, and discharge, Neck: Negative for injury, pain, and swelling, Cardiovascular: Negative for chest pain, palpitations, and edema, Respiratory: Negative for shortness of breath, cough, wheezing, and pleuritic chest pain, Abdomen/GI: Negative for abdominal pain, nausea, vomiting, diarrhea, and constipation, Back: Negative for injury and pain, : Negative for injury, bleeding, discharge, and swelling, Neuro: Negative for headache, weakness, numbness, tingling, and seizure. Skin: Positive for abscess, of the left hip[. Exam: 23:35 Head/Face: Normocephalic, atraumatic. Eyes: Pupils equal round and reactive to light, pkl extra-ocular motions intact. Lids and lashes normal. Conjunctiva and sclera are non-icteric and not injected. Cornea within normal limits. Periorbital areas with no swelling, redness, or edema. ENT: Nares patent. No nasal discharge, no septal abnormalities noted. Tympanic membranes are normal and external auditory canals are clear. Oropharynx with no redness, swelling, or masses, exudates, or evidence of obstruction, uvula midline. Mucous membranes moist. Neck: Trachea midline, no thyromegaly or masses palpated, and no cervical lymphadenopathy. Supple, full range of motion without nuchal rigidity, or vertebral point tenderness. No Meningismus. Chest/axilla: Normal chest wall appearance and motion. Nontender with no deformity. No lesions are appreciated. Cardiovascular: Regular rate and rhythm with a normal S1 and S2. No gallops, murmurs, or rubs. Normal PMI, no JVD. No pulse deficits. Respiratory: Lungs have equal breath sounds bilaterally, clear to auscultation and percussion. No rales, rhonchi or wheezes noted. No increased work of breathing, no retractions or nasal flaring. Abdomen/GI: Soft, non-tender, with normal bowel sounds. No distension or tympany. No guarding or rebound. No evidence of tenderness throughout. Back: No spinal tenderness. No costovertebral tenderness. Full range of motion. Neuro: Awake and alert, GCS 15, oriented to person, place, time, and situation. Cranial nerves II-XII grossly intact. Motor strength 5/5 in all extremities. Sensory grossly intact. Cerebellar exam normal. Normal gait. 23:35 Skin: abscess, that is moderate sized, approximately 3 cm(s), with fluctuance, that is moderate, induration, that is moderate is noted. Vital Signs: 20:53 BP 121 / 86; Pulse 74; Resp 16; Temp 97.9; Pulse Ox 97% on R/A; Weight 88.45 kg; iw Procedures: 23:54 I \T\ D: Incision and drainage was performed for an abscess of the left Prepped with pkl Betadine, Anesthetized with 5 ml's 1% Lidocaine. Incised with #11 blade. Drained moderate amount purulent fluid. Packed with iodoform gauze, Dressing: sterile 4x4 gauze, the patient tolerated the procedure well. MDM: 23:17 Patient medically screened. pkl 23:54 Data reviewed: vital signs, nurses notes. pkl 04/11 00:08 Order name: Wound Culture pkl Administered Medications: 04/11 00:03 Drug: Bactrim (trimethoprim-sulfamethoxazole) (160 mg-800 mg (DS) 1 tablet Route: PO; ms4 00:03 Follow up: Response: No adverse reaction ms4 Disposition Summary: 04/10/21 23:56 Discharge Ordered Location: Home pkl Problem: new pkl Symptoms: have improved pkl Condition: Stable pkl Diagnosis - Abscess left hip pkl Followup: pkl - With: Olivier Jain MD - When: 1 - 2 days - Reason: Re-evaluation by your physician Discharge Instructions: - Discharge Summary Sheet pkl Forms: - Medication Reconciliation Form pkl - Thank You Letter pkl - Antibiotic Education pkl - Prescription Opioid Use pkl Prescriptions: - Bactrim DS 800-160 mg Oral Tablet - take 1 tablet by ORAL route every 12 hours for 7 days; 14 tablet; Refills: 0, pkl Product Selection Permitted Signatures: Dispatcher [employer] Victor Manuel Manuel MD MD pkl Jennyfer Carlson RN RN iw Smita Wilson RN RN ms4 Corrections: (The following items were deleted from the chart) 00:02 04/10 20:55 PMHx: Anxiety; iw ms4 04/11 00:02 04/10 20:55 PMHx: Diabetes - NIDDM; iw ms4
--- NOTE | 2021-04-10 23:57 | ER ---
Nurse's Notes [facility] Name: Jelly Hooker Age: 45 yrs Sex: Female : 1975 Arrival Date: 04/10/2021 Time: 20:38 Bed 12 Private MD: Diagnosis: Abscess left hip Presentation: 04/10 20:53 Chief complaint: Patient states: abscess and cellulitis to right hip area X 2 days. iw Coronavirus screen: At this time, the client does not indicate any symptoms associated with coronavirus-19. Ebola Screen: Patient negative for fever greater than or equal to 101.5 degrees Fahrenheit, and additional compatible Ebola Virus Disease symptoms Patient denies exposure to infectious person. Patient denies travel to an Ebola-affected area in the 21 days before illness onset. No symptoms or risks identified at this time. Initial Sepsis Screen: Does the patient meet any 2 criteria? No. Patient's initial sepsis screen is negative. Does the patient have a suspected source of infection? No. Patient's initial sepsis screen is negative. Risk Assessment: Do you want to hurt yourself or someone else? Patient reports no desire to harm self or others. Onset of symptoms was April 08, 2021. 20:53 Method Of Arrival: Ambulatory iw 20:53 Acuity: JACKIE 4 iw Triage Assessment: 04/11 00:01 Bite description: by an unknown animal. ms4 00:01 Bite description: bite sustained to back animal information: vaccination(s) is not ms4 applicable. 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 - Social history:: Smoking status: Patient denies any tobacco usage or history of. Screenin/04 23:29 Abuse screen: Denies threats or abuse. Nutritional screening: No deficits noted. bb Tuberculosis screening: No symptoms or risk factors identified. Fall Risk None identified. Assessment: 23:29 General: Appears in no apparent distress. uncomfortable, Behavior is calm, cooperative. bb Pain: Complains of pain in left flank area. Neuro: Level of Consciousness is awake, alert, obeys commands, Oriented to person, place, time, situation. Cardiovascular: Capillary refill < 3 seconds Patient's skin is warm and dry. Respiratory: Respiratory effort is even, unlabored, Respiratory pattern is regular. GI: Abdomen is non-distended. Derm: Skin is intact, Skin is pink, warm \T\ dry. Wound noted left flank area. Musculoskeletal: Circulation, motion, and sensation intact. 04/11 00:11 Reassessment: Patient is alert, oriented x 3, equal unlabored respirations, skin bb warm/dry/pink. pt verbalized understanding of and agrees to plan of care discharge instructions given pt ambulated with steady gait to exit. Vital Signs: 04/10 20:53 BP 121 / 86; Pulse 74; Resp 16; Temp 97.9; Pulse Ox 97% on R/A; Weight 88.45 kg; iw ED Course: 20:38 Patient arrived in ED. 20:55 Triage completed. iw 23:17 Victor Manuel Cazares MD is Attending Physician. pkl 23:28 Smita Wilson RN is Primary Nurse. ms4 23:29 Patient has correct armband on for positive identification. Call light in reach. bb 23:55 Olivier Jain MD is Referral Physician. pkl 04/11 00:00 Assist provider with I \T\ D: of an abscess on left hip. ms4 00:02 Arm band placed on right wrist. ms4 00:02 Patient did not have IV access during this emergency room visit. ms4 Administered Medications: 00:03 Drug: Bactrim (trimethoprim-sulfamethoxazole) (160 mg-800 mg (DS) 1 tablet Route: PO; ms4 00:03 Follow up: Response: No adverse reaction ms4 Outcome: 04/10 23:56 Discharge ordered by . pkl 04/11 00:01 Condition: stable ms4 00:01 Discharged to home ambulatory. ms4 00:01 Discharge instructions given to patient. 00:12 Patient left the ED. bb Addendum: 04/14/2021 07:11 Addendum: Culture Results: Positive wound culture. No further action required. Bacteria e b sensitive to prescribed antibiotic. Signatures: Victor Manuel Cazares MD MD pkDeyanira Casey RN RN bb Jennyfer Carlson RN RN Cecy Portillo Wendy Arcadio Wilsona, RN RN ms4 Corrections: (The following items were deleted from the chart) 04/10 20:55 20:53 Chief complaint: Patient states: abscess and cellulitis to right abd X 2 days [facility] 04/11 00:02 04/10 20:55 PMHx: Anxiety; ms4 04/11 00:02 04/10 20:55 PMHx: Diabetes - NIDDM; ms4
[2021-04-11] MEDS ORDERED: LIDOCAINE 1% 20 ML MDV ONE (00:03)
[2021-04-11] MEDS ORDERED: SMZ./TMP. 800/160 MG TABLET ONE (00:25)
[2021-04-11 02:45] VITALS: BP 121/86; TEMP 97.9; O2SAT 97
== END 2021-04-11 00:12 | disposition home or self-care (01) ==
LOC: ER 20:35
PROC: 0J9M0ZZ Drainage of Left Upper Leg Subcutaneous Tissue and Fascia, Open Approach (ICD-10-PCS; principal; 2021-04-11)
DX: L02.416 Cutaneous abscess of left lower limb (principal); I10 Essential (primary) hypertension
CPT/HCPCS: 87070; 87077; 87186; 87205; 99283

== ENCOUNTER 2021-04-15 15:45 | Emergency (ER) | payer SELFPAY ==
--- OUTSIDE RECORDS SUMMARY | 2021-04-15 15:47 | XMS REPORT | Continuity of Care Document ---
:1975 Author Organization [facility] t Address [address] [place] [address] Care Team Providers Name Role Phone Doctor Unassigned, Name Attending Clinician Unavailable Mauricio Soliz DO Attending Clinician Zoe VU, Davion Attending Clinician Problems This patient has no known problems. Allergies, Adverse Reactions, Alerts This patient has no known allergies or adverse reactions. Medications This patient has no known medications. Procedures This patient has no known procedures. Encounters Start End Encounter Admission Attending Care Care Encounter Source Date/Time Date/Time Type Type Clinicians Facility Department ID 2021-03-21 2021-03-21 Orders Doctor ELIAS 1.2.840.114 [id number] 00:00:00 00:00:00 Only Unassigned, ANIL 350.1.13.10 [place] [facility] 4.2.7.2.686 [id number] 2020-11-22 2020-11-22 Patient JENNIFER Soliz 1.2.840.114 [id number] 00:00:00 00:00:00 Outreach Ramirez MOORE 350.1.13.10 Mauricio [facility] 4.2.7.2.686 SON [id number] [facility] 2020-03-15 2020-03-15 Telemedici JENNIFER Enriquez 1.2.840.114 [id number] 08:15:02 08:30:02 ne Visit Guille Marrero 350.1.13.10 Davion Mistry 4.2.7.2.686 Professio [phone] [address] 2020-03-12 2020-03-12 [facility]ill [facility] 1.2.840.114 [id number] 00:00:00 00:00:00 [facility] 350.1.13.10 [facility] [place] 4.2.7.2.686 Professio [phone] [place] [address] [address] 2020-03-12 2020[facility]03-12 [facility] 1.2.840.114 [id number] 00:00:00 00:00:00 [facility] 350.1.13.10 [facility] [place] 4.2.7.2.686 Professio [phone] [place] [address] [address] 2020-03-11 2020-03-11 [facility] 1.2.840.114 [id number] 00:00:00 00:00:00 [facility] 350.1.13.10 [facility] [place] 4.2.7.2.686 Professio [phone] [place] [address] [address] 2020-03-09 2020-03-09 [facility] 1.2.840.114 [id number] 00:00:00 00:00:00 [facility] 350.1.13.10 [facility] [place] 4.2.7.2.686 Professio [phone] [place] [address] [address] 2020-03-09 2020-03-09 [facility] 1.2.840.114 [id number] 00:00:00 00:00:00 [facility] 350.1.13.10 [facility] [place] 4.2.7.2.686 Professio [phone] [place] [address] [address] 2020-03-06 2020-03-06 [facility] 1.2.840.114 [id number] 00:00:00 00:00:00 [facility] 350.1.13.10 [facility] [place] 4.2.7.2.686 Professio [phone] [place] [address] [address] 2020-02-14 2020-02-14 Telephone [facility] 1.2.840.114 [id number] 00:00:00 00:00:00 [facility] 350.1.13.10 [facility] [place] 4.2.7.2.686 Professio [phone] [place] [address] [address] 2020-02-13 2020-02-13 [facility] 1.2.840.114 [id number] 00:00:00 00:00:00 [facility] 350.1.13.10 [facility] [place] 4.2.7.2.686 Professio [phone] [place] [address] [address] 2020-02-09 2020-02-09 [facility] 1.2.840.114 [id number] 00:00:00 00:00:00 [facility] 350.1.13.10 [facility] [place] 4.2.7.2.686 Professio [phone] [place] [address] [address] 2020-02-08 2020-02-08 [facility] 1.2.840.114 [id number] 00:00:00 00:00:00 [facility] 350.1.13.10 [facility] [place] 4.2.7.2.686 Professio [phone] [place] [address] [address] 2020-01-10 2020-01-10 [facility] 1.2.840.114 [id number] 00:00:00 00:00:00 [facility] 350.1.13.10 [facility] [place] 4.2.7.2.686 Professio [phone] [place] [address] [address] 2019-11-08 2019-11-08 Orders Doctor ELIAS 1.2.840.114 [id number] 00:00:00 00:00:00 Only Unassigned, ANIL 350.1.13.10 [place] [facility] [phone] [id number] Results This patient has no known results.
--- NOTE | 2021-04-15 16:49 | EDPHYS ---
Physician Documentation [facility] Name: Jelly Hooker Age: 45 yrs Sex: Female : 1975 Arrival Date: 04/15/2021 Time: 15:47 Bed Waiting Private MD: ED Physician Toi Zeng HPI: 04/15 16:44 This 45 yrs old Female presents to ER via Unassigned with complaints of rn Abscess Recheck. 16:44 Patient presents to ED for recheck of: abscess. The affected area is on the pelvis. rn Previous treatment: The patient was initially treated 5 day(s) ago. Progress: The patient reports overall improvement. The patient has not experienced similar symptoms in the past. The patient has been recently seen at the [facility] Emergency Department. Patient reports seen here 5 days ago and had incision and drainage of left pelvic/hip abscess. Has been changing outer dressing but has not changed packing. States last dressing noticed big glob of material. No fever, still draining a little bit but overall improved.. 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 - Social history:: Smoking status: Patient denies any tobacco usage or history of. Patient uses alcohol, weekly. - Family history:: not pertinent. - Hospitalizations: : No recent hospitalization is reported. ROS: 16:44 Constitutional: Negative for fever, chills, and weight loss, Skin: Overall continuous improvement consultant of abscess and incision site Exam: 16:44 Constitutional: This is a well developed, well nourished patient who is awake, alert, rn and in no acute distress. Abdomen/GI: Soft, nontender Skin: Warm, dry, small area overlying left pelvis/hip with 1 cm incision, packing no longer in wound, wound very shallow now, but no evidence of fluctuance or continued abscess. Wound appears to be healing well without surrounding cellulitis. Vital Signs: 16:40 BP 128 / 101; Pulse 87; Resp 20; Temp 97.7(TE); Pulse Ox 100% ; Weight 87.09 kg (R); kg Height 5 ft. 7 in. (170.18 cm); Pain 7/10; 16:40 Body Mass Index 30.07 (87.09 kg, 170.18 cm) kg MDM: 16:44 Patient medically screened. rn 16:44 Differential diagnosis: Status post incision and drainage to abscess. Data reviewed: rn vital signs, nurses notes. 16:46 Counseling: I had a detailed discussion with the patient and/or guardian regarding: the rn historical points, exam findings, and any diagnostic results supporting the discharge/admit diagnosis, the need for outpatient follow up, to return to the emergency department if symptoms worsen or persist or if there are any questions or concerns that arise at home. Special discussion: I discussed with the patient/guardian in detail that at this point there is no indication for admission to the hospital. It is understood, however, that if the symptoms persist or worsen the patient needs to return immediately for re-evaluation. ED course: Wound packing has been dislodged accidentally by patient at home, wound too small for repacking and appears to be healing well, will DC home with local wound care. Administered Medications: No medications were administered Disposition Summary: 04/15/21 16:48 Discharge Ordered Location: Home rn Problem: new rn Symptoms: have improved rn Condition: Stable rn Diagnosis - Cutaneous abscess of limb - Left hip region rn Followup: rn - With: Private Physician - When: As needed - Reason: Recheck today's complaints, Re-evaluation by your physician Discharge Instructions: - Discharge Summary Sheet rn - Skin Abscess rn - Wound Care, Adult rn Forms: - Medication Reconciliation Form rn - Thank You Letter rn - Antibiotic international logistics analyst - Prescription Opioid Use rn Signatures: Toi Zeng MD MD rn Graham, Kristen RN RN kg
--- NOTE | 2021-04-15 18:41 | ER ---
Nurse's Notes [facility] Name: Jelly Hooker Age: 45 yrs Sex: Female : 1975 Arrival Date: 04/15/2021 Time: 15:47 Bed Waiting Private MD: Diagnosis: Cutaneous abscess of limb-Left hip region Presentation: 04/15 16:40 Chief complaint: Patient states: Pt was seen on and had abscess drained and kg would like to have it rechecked. Coronavirus screen: Client denies travel out of the [place] in the last 14 days. At this time, unable to obtain information related to travel outside the [place] At this time, the client does not indicate any symptoms associated with coronavirus-19. Ebola Screen: Patient negative for fever greater than or equal to 101.5 degrees Fahrenheit, and additional compatible Ebola Virus Disease symptoms Patient denies exposure to infectious person. Patient denies travel to an Ebola-affected area in the 21 days before illness onset. No symptoms or risks identified at this time. Initial Sepsis Screen: Does the patient meet any 2 criteria? No. Patient's initial sepsis screen is negative. Does the patient have a suspected source of infection? No. Patient's initial sepsis screen is negative. Risk Assessment: Do you want to hurt yourself or someone else? Patient reports no desire to harm self or others. Onset of symptoms was April 13, 2021. 16:40 Method Of Arrival: Ambulatory kg 16:40 Acuity: JACKIE 5 kg Triage Assessment: 16:50 General: Appears in no apparent distress. Behavior is calm, cooperative, appropriate kg for age, quiet. Pain: Complains of pain in Left hip. 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 - Social history:: Smoking status: Patient denies any tobacco usage or history of. Patient uses alcohol, weekly. - Family history:: not pertinent. - Hospitalizations: : No recent hospitalization is reported. Screenin:40 Abuse screen: Denies threats or abuse. Denies injuries from another. Nutritional kg screening: No deficits noted. Tuberculosis screening: No symptoms or risk factors identified. Fall Risk None identified. Vital Signs: 16:40 BP 128 / 101; Pulse 87; Resp 20; Temp 97.7(TE); Pulse Ox 100% ; Weight 87.09 kg (R); kg Height 5 ft. 7 in. (170.18 cm); Pain 7/10; 16:40 Body Mass Index 30.07 (87.09 kg, 170.18 cm) kg ED Course: 15:47 Patient arrived in ED. mr 16:44 Toi Zeng MD is Attending Physician. rn 16:50 Triage completed. kg 16:50 Arm band placed on right wrist. kg 18:40 Patient has correct armband on for positive identification. kg 18:40 No provider procedures requiring assistance completed. Patient did not have IV access kg during this emergency room visit. Administered Medications: No medications were administered Outcome: 16:48 Discharge ordered by . rn 18:40 Discharged to home ambulatory. kg 18:40 Condition: good 18:40 Discharge instructions given to patient, Instructed on discharge instructions, follow up and referral plans. wound care, Demonstrated understanding of instructions, follow-up care, wound care. 18:40 Patient left the ED. kg Signatures: Nickie Orlando mr Toi Zeng MD MD rn Graham, Kristen, RN RN kg
[2021-04-15 18:51] VITALS: BP 128/101; TEMP 97.7; O2SAT 100
== END 2021-04-15 18:40 | disposition home or self-care (01) ==
LOC: ER 15:45
DX: L02.416 Cutaneous abscess of left lower limb (principal)
CPT/HCPCS: 99281

== ENCOUNTER 2024-12-31 23:32 | Inpatient (IN) | payer SELFPAY ==
--- OUTSIDE RECORDS SUMMARY | 2024-12-31 23:36 | XMS REPORT | Continuity of Care Document ---
Author Name Unknown Address [address] [place] [address] Organization [facility] Address [address] [place] [address] Care Team Providers Care Director Of Technology Name Role Phone [place], [place] [facility] Physician Deyanira Momin MA Attending Clinician Unavailgraciela donnelly Doctor Unassigned, [place] Attending Clinician U Ramirez Conroy DO Attending Clinician KENNEDY ENRIQUEZ Attending Clinician Kennedy Franklin MD Attending Clinician [phone] Payers Payer Name Policy Type Policy Number Effective Date Expirati on Date Source Problems Condition Name Condition Details Condition Category Status Onset Date Resolution Date Last Treatment Date Treating Clinician Comments Source Type 2 diabetes mellitus without complicati on Type 2 diabetes mellitus without complicati on Disease Active 2015-09 00:00: 00 [facility] Essential hypertensi on Essential hypertensi on Disease Active 2015-09 00:00: 00 [facility] Anxiety Anxiety Disease Active 2015-09 00:00: 00 [facility] Allergies, Adverse Reactions, Alerts Allergy Name Allergy Type Status Severity Reaction(s) Onset Date Inactive Date Treating Clinician Comments Source NO KNOWN ALLERGIE S Drug Class Active [facility] Social History Social Habit Start Date Stop Date Quantity Comments Source History SDOH Alcohol Frequency [facility] History SDOH Alcohol Std Drinks [facility] History SDOH Alcohol Binge [facility] Alcohol intake 2019-06-17 00:00:00 2019-06-17 00:00:00 .57 /d [facility] Tobacco use and exposure 2016-08-13 00:00:00 2016-08-13 00:00:00 Never used [facility] Alcohol Comment 2016-08-13 00:00:00 2016-08-13 00:00:00 occ [facility] Sex Ass[birth year] At 1975 00:00:00 1975 00:00:00 [facility] Smoking Status Start Date Stop Date Source Never smoker [facility] Medications Ordered Medication Name Filled Medication Name Start Date Stop Date Current Medication? Ordering Clinician Indication Dosage Frequency Signature (SIG) Comments Components Source ARIPiprazol e (ABILIFY) 5 mg tablet 03-15 00:00: 00 Yes [id number] 5mg Take 1 tablet by mouth daily. [facility] ALPRAZolam 1 mg tablet 03-15 00:00: 00 Yes [id number] 1mg Take 1 tablet by mouth 2 (two) times daily. [facility] losartan 100 mg tablet 03-15 00:00: 00 Yes [id number] 100mg Take 1 tablet by mouth daily. [facility] citalopram 40 mg tablet 03-15 00:00: 00 Yes [id number] 40mg Take 1 tablet by mouth daily. [facility] ALPRAZolam 1 mg tablet 02-14 00:00: 00 03-15 00:00 :00 No [id number] 1mg Take 1 tablet by mouth 2 (two) times daily. [facility] ALPRAZolam 1 mg tablet 02-13 00:00: 00 Yes [id number] 1mg Take 1 tablet by mouth 2 (two) times daily. [facility] ALPRAZOLAM 1 mg tablet 01-10 00:00: 00 02-13 00:00 :00 No [id number] TAKE ONE TABLET BY MOUTH TWICE A DAY [facility] metformin ER 500 mg 24 hr tablet 2018-09 00:00: 00 Yes [id number] 1000mg Take 2 tablets by mouth 2 (two) times daily. [facility] glimepiride 4 mg tablet 2018-09 00:00: 00 Yes [id number] 4mg Take 1 tablet by mouth daily with breakfast. [facility] ARIPiprazol e 2 mg tablet 2018-09 00:00: 00 03-15 00:00 :00 No [id number] 2mg Take 1 tablet by mouth daily. [facility] ALPRAZolam 1 mg tablet 2018-09 00:00: 00 Yes [id number] 1mg Take 1 tablet by mouth 2 (two) times daily. [facility] amLODIPine 5 mg tablet 2018-09 00:00: 00 Yes 5mg Take 1 tablet by mouth daily. [facility] meloxicam 15 mg tablet 2018-09 00:00: 00 Yes 15mg Take 1 tablet by mouth daily. [facility] traZODone 150 mg tablet 2018-09 00:00: 00 03-15 00:00 :00 No [id number] TAKE 75MG (1/2 TABLET) TO 100 MG (2/3 OF TABLET) AT BEDTIME NEEDED [facility] losartan 100 mg tablet 2018-09 00:00: 00 03-15 00:00 :00 No [id number] 100mg Take 1 tablet by mouth daily. [facility] citalopram 40 mg tablet 2018-09 00:00: 00 03-15 00:00 :00 No [id number] 40mg Take 1 tablet by mouth daily. [facility] oxybutynin chloride 5 mg tablet 2017-09 00:00: 00 Yes [id number] 5mg Take 1 tablet by mouth 2 (two) times daily. [facility] BLOOD GLUCOSE TEST strip 2017-09 00:00: 00 Yes TESTING DAILY [facility] BLOOD GLUCOSE TEST strip 2017-09 00:00: 00 Yes TESTING DAILY [facility] BLOOD GLUCOSE TEST strip 2017-09 00:00: 00 Yes TESTING DAILY [facility] MICRO THIN LANCETS 33 gauge Misc 2017-0 04-27 00:00: 00 Yes TEST DAILY [facility] Procedures Procedure Date / Time Performed Performing Clinician Source REFERRAL- REQUEST/RESPONSE 2021-03-21 05:01:00 Doctor Unassigned, [place] [facility] AUTHORIZATION FOR RELEASE OF PHI 2019-11-08 06:01:00 Doctor Unassigned, [place] [facility] Encounters Start Date/Time End Date/Time Encounter Type Admission Type Attending [facility] Care Facility Care Department Encounter ID Source 2021-06-20 00:00:00 2021-06-20 00:00:00 Case Management Deyanira Momin 1.2.840.114 350.1.13.10 4.2.7.2.686 [id number] [facility] 2021-03-21 00:00:00 2021-03-21 00:00:00 Orders Only Doctor Unassigned, [place] [facility] 1.2.840.114 350.1.13.10 4.2.7.2.686 [id number] 2021-03-21 00:00:00 2021-03-21 00:00:00 Orders Only Doctor Unassigned, [place] [facility] 1.2.840.114 350.1.13.10 4.2.7.2.686 [id number] [facility] 2020-11-22 00:00:00 2020-11-22 00:00:00 Patient Outreach Ramirez Soliz [facility] 1.2.840.114 350.1.13.10 4.2.7.2.686 [id number] 2020-11-22 00:00:00 2020-11-22 00:00:00 Patient Outreach Ramirez Soliz [facility] 1.2.840.114 350.1.13.10 4.2.7.2.686 [id number] [facility] 2020-03-15 10:30:00 2020-03-15 10:30:00 Outpatient R KENNEDY ENRIQUEZ [facility] [id number] [facility] 2020-03-15 08:15:02 2020-03-15 08:30:02 Telemedici ne Visit Kennedy Enriquez [facility] nal Building 1.2.840.114 350.1.13.10 4.2.7.2.686 [id number] 2020-03-15 08:15:02 2020-03-15 08:30:02 Telemedici ne Visit Kennedy Enriquez [facility] Building 1.2.840.114 350.1.13.10 4.2.7.2.686 [id number] [facility] 2020-03-12 00:00:00 2020-03-12 00:00:00 Refill Kennedy Enriquez [facility] Office Building One 1.2840.114 350.1.13.10 4.2.7.2.686 [id number] 2020-03-12 00:00:00 2020-03-12 00:00:00 Refill Kennedy Enriquez [facility] 1.2840.114 350.1.13.10 4.2.7.2.686 [id number] 2020-03-12 00:00:00 2020-03-12 00:00:00 Refill Kennedy Enriquez [facility] 1.2840.114 350.1.13.10 4.2.7.2.686 [id number] [facility] 2020-03-12 00:00:00 2020-03-12 00:00:00 Refill Zoe [facility] Office Building One 1.2840.114 350.1.13.10 4.2.7.2.686 [id number] [facility] 2020-03-11 00:00:00 2020-03-11 00:00:00 Refsebastián Enriquez [facility] 1.2840.114 350.1.13.10 4.2.7.2.686 [id number] 2020-03-11 00:00:00 2020-03-11 00:00:00 Refill Zoe [facility] 1.2840.114 350.1.13.10 4.2.7.2.686 [id number] [facility] 2020-03-09 00:00:00 2020-03-09 00:00:00 Refill Zoe [facility] 1.2840.114 350.1.13.10 4.2.7.2.686 [id number] 2020-03-09 00:00:00 2020-03-09 00:00:00 Refill Zoe [facility] 1.2840.114 350.1.13.10 4.2.7.2.686 [id number] [facility] 2020-03-09 00:00:00 2020-03-09 00:00:00 Refill Zoe [facility] 1.2840.114 350.1.13.10 4.2.7.2.686 [id number] 2020-03-09 00:00:00 2020-03-09 00:00:00 Refill Zoe [facility] 1.2840.114 350.1.13.10 4.2.7.2.686 [id number] [facility] 2020-03-06 00:00:00 2020-03-06 00:00:00 Refill Kennedy Enriquez [facility] 1..840.114 350.1.13.10 4.2.7.2.686 [id number] 2020-03-06 00:00:00 2020-03-06 00:00:00 Refill Kennedy Enriquez [facility] 1.840.114 350.1.13.10 4.2.7.2.686 [id number] [facility] 2020-02-24 11:30:00 2020-02-24 11:30:00 Outpatient KENNEDY ALVARES [facility] [id number] [facility] 2020-02-14 00:00:00 2020-02-14 00:00:00 Telephone Zoe [facility] 1.840.114 350.1.13.10 4.2.7.2.686 [id number] 2020-02-14 00:00:00 2020-02-14 00:00:00 Telephone Kennedy Enriquez [facility] 1..840.114 350.1.13.10 4.2.7.2.686 [id number] [facility] 2020-02-13 08:15:00 2020-02-13 08:15:00 Outpatient KENNEDY ALVARES [facility] [id number] [facility] 2020-02-13 00:00:00 2020-02-13 00:00:00 Refill Zoe [facility] 1..840.114 350.1.13.10 4.2.7.2.686 [id number] 2020-02-13 00:00:00 2020-02-13 00:00:00 Refill Yohannesradhasavannah [facility] 1.2840.114 350.1.13.10 4.2.7.2.686 [id number] [facility] 2020-02-09 00:00:00 2020-02-09 00:00:00 Refill Zoe [facility] 1.2840.114 350.1.13.10 4.2.7.2.686 [id number] 2020-02-09 00:00:00 2020-02-09 00:00:00 Refill Zoe [facility] 1.2840.114 350.1.13.10 4.2.7.2.686 [id number] [facility] 2020-02-08 00:00:00 2020-02-08 00:00:00 Refill Zoe [facility] 1.2840.114 350.1.13.10 4.2.7.2.686 [id number] 2020-02-08 00:00:00 2020-02-08 00:00:00 Refill Zoe [facility] 1.2840.114 350.1.13.10 4.2.7.2.686 [id number] [facility] 2020-01-10 00:00:00 2020-01-10 00:00:00 Refill Zoe [facility] 1.2840.114 350.1.13.10 4.2.7.2.686 [id number] 2020-01-10 00:00:00 2020-01-10 00:00:00 Refill Zoe [facility] 1.2840.114 350.1.13.10 4.2.7.2.686 [id number] [facility] 2019-11-08 00:00:00 2019-11-08 00:00:00 Orders Only Doctor Unassigned, [place] [facility] 1.2.840.114 350.1.13.10 4.2.7.2.686 [id number] 2019-11-08 00:00:00 2019-11-08 00:00:00 Orders Only Doctor Unassigned, [place] [facility] 1.2.840.114 350.1.13.10 4.2.7.2.686 [id number] [facility]
[2024-12-31] MEDS ORDERED: ONDANSETRON 4 MG/2 ML VIAL ONE (23:59)
[2024-12-31] MEDS ORDERED: FAMOTIDINE 20 MG/2 ML VIAL IV ONE (23:59)
[2024-12-31] MEDS ORDERED: MAGNES/ALUMIN/SIMET 30ML UCUP ONE (23:59)
[2025-01-01] MEDS ORDERED: LIDOCAINE VISCOUS 2% 10ML ORAL SOLN ONE
[2025-01-01 00:31] LABS: Absolute Eosinophils 0.1 K/uL (0-0.5); Absolute Lymphocytes (CBC) 0.8 K/uL (0.7-4.9); Absolute Monocytes 0.4 K/uL (0.1-1.3); Absolute Neutrophil 5.8 K/uL (1.8-8.0); Basophils % 0.5 % (0-1.3); Hemoglobin 12.3 g/dL (12.0-15.0); Lymphocytes % 10.9 % (15.3-44.8); MCH 25.7 pg (27.0-35.0); MCHC 33.2 g/dL (32.0-36.0); MCV 77.4 fL (80-100); MPV 8.6 fL (7.6-11.3); Monocytes % 5.6 % (3.3-12.3); Nucleated RBC Absolute Count 0.1 (0-0); Nucleated Red Blood Cells % 0.7 % (0-0); Platelets 214 thou/uL (152-406); RBC Red Blood Cell Count 4.79 M/uL (3.86-4.86); Red Cell Distribution Width 15.2 % (12.1-15.2)
[2025-01-01 00:44] LABS: Albumin 3.6 g/dL (3.4-5.0); Albumin/Globulin Ratio 0.8 (1.1-1.8); Anion Gap 8.6 mEq/L (5.0-15.0); Bilirubin Total 1.3 mg/dL (0.2-1.0); Globulin 4.3 g/dL (2.3-3.5); Potassium 3.6 mEq/L (3.5-5.1); Protein, Total 7.9 g/dL (6.4-8.2)
[2025-01-01 02:22] LABS: Specific Gravity > 1.030 (1.005-1.030); Urine Bilirubin NEGATIVE (Negative); Urine Blood Negative (Negative); Urine Clarity Clear (Clear); Urine Color Yellow (Yellow); Urine Glucose NEGATIVE (Negative); Urine Ketones NEGATIVE (Negative); Urine Microscopic Reflex YN NO UMIC; Urine Nitrite NEGATIVE (Negative); Urine Protein NEGATIVE (Negative); Urine Urobilinogen 2+ (Normal)
--- NOTE | 2025-01-01 02:31 | RAD REPORT ---
EXAMINATION: Abdomen Pelvis W Contrast CLINICAL INDICATION: Female, 49 years old.ABD PAIN TECHNIQUE: CT abdomen and pelvis was performed, after the administration of IV contrast, as per [facility]. Axial, sagittal and coronal reconstructions were obtained. One or more of the following dose reduction techniques were used: Automated exposure control, adjustment of the mA and/o r kV according to patient size, and/or iterative reconstruction. Unless otherwise specified, incidental findings do not require dedicated imaging follow-up. [id number]. COMPARISON: No prior exam. FINDINGS: LOWER CHEST: No acute process identified.No significant pericardial effusion. Moderate circumferentia l thickening of the distal esophagus which could reflect esophagitis. Endoscopy could better evaluate. UPPER GI: No significant abnormality. LIVER: No significant focal abnormality. GALLBLADDER/BILE DUCTS: Distended gallbladder with gallbladder wall thickening?. Common bile duct montez sures 6 mm which is mildly dilated. PANCREAS: No mass, ductal dilation, or heath-pancreatic fluid. SPLEEN: Unremarkable. ADRENALS: No adrenal masses. KIDNEYS AND URETERS: No hydronephrosis.No suspicious renal mass.No renal calculi. ABDOMINAL AORTA AND OTHER VESSELS: Normal caliber aorta and IVC. PERITONEUM: Small volume of pelvic free fluid which is likely physiologic. LYMPH NODES: No pathologic lymphadenopathy. ABDOMINAL WALL: Unremarkable SMALL BOWEL/COLON: Small bowel has normal course and caliber. No colonic wall thickening or pericolon ic inflammatory changes.Normal appendix. URINARY BLADDER: Underdistended but grossly unremarkable. REPRODUCTIVE ORGANS: 6 cm left adnexal cystic lesion.>5 cm - <=7 cm: US f/u 6-12 weeks MUSCULOSKELETAL: No acute or suspicious osseous abnormality. ADDITIONAL FINDINGS: None. IMPRESSION: Distended gallbladder with gallbladder wall thickening could reflect acute cholecystitis in the appro priate clinical setting. The common bile duct is mildly dilated at 6 mm. Left adnexal cystic lesion measuring 6 cm. Pelvic ultrasound is recommended in 6-12 weeks.
[2025-01-01] MEDS ORDERED: PIPERACIL/TAZO 3.375 GM VIAL IV ONE ×2 (03:37→08:19)
[2025-01-01] MEDS ORDERED: NA CHLORIDE 0.9% 100 ML ONE ×2 (03:37→08:19)
[2025-01-01] MEDS ORDERED: KETOROLAC 30 MG/ML INJ ONE (03:37)
--- NOTE | 2025-01-01 04:08 | EDPHYS ---
Physician Documentation [facility] Name: Jelly Hooker Age: 49 yrs Sex: Female : 1975 Arrival Date: 12/31/2024 Time: 23:32 Bed 14 Private MD: ED Physician HPI: 12/31 23:57 This 49 yrs old Female presents to ER via Unassigned with complaints of rt Abdominal Pain. 23:57 Patient presents to the ED with an epigastric pain starting at about 1 PM. Has been off rt and on. She has nausea that vomiting. States that has been 2 days since she has had a bowel movement but denies straining to use the bathroom. Denies urinary symptoms, denies other acute complaints at this time, symptoms are moderate severity, no other aggravating or alleviating factors.. 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 - Infectious Disease History:: Denies. - Social history:: Smoking status: Patient uses street drugs, marijuana. ROS: 23:57 Constitutional: Negative for fever, chills, and weight loss, Cardiovascular: Negative rt for chest pain, palpitations, and edema, Respiratory: Negative for shortness of breath, cough, wheezing, and pleuritic chest pain, MS/Extremity: Negative for injury and deformity, Skin: Negative for injury, rash, and discoloration, Neuro: Negative for headache, weakness, numbness, tingling, and seizure, 23:57 Abdomen/GI: Positive for abdominal pain, nausea, Exam: 23:57 Constitutional: This is a well developed, well nourished patient who is awake, alert, rt and in no acute distress. Head/Face: Normocephalic, atraumatic. Chest/axilla: Normal chest wall appearance and motion. Nontender with no deformity. No lesions are appreciated. Cardiovascular: Regular rate and rhythm with a normal S1 and S2. No gallops, murmurs, or rubs. Normal PMI, no JVD. No pulse deficits. Respiratory: Lungs have equal breath sounds bilaterally, clear to auscultation and percussion. No rales, rhonchi or wheezes noted. No increased work of breathing, no retractions or nasal flaring. Skin: Warm, dry with normal turgor. Normal color with no rashes, no lesions, and no evidence of cellulitis. MS/ Extremity: Pulses equal, no cyanosis. Neurovascular intact. Full, normal range of motion. Neuro: Awake and alert, GCS 15, oriented to person, place, time, and situation. Cranial nerves II-XII grossly intact. Motor strength 5/5 in all extremities. Sensory grossly intact. Cerebellar exam normal. Normal gait. 23:57 Abdomen/GI: Minimal tenderness to the epigastrium without rebound, guarding, distention, Vital Signs: 23:39 BP 179 / 106; Pulse 83; Resp 17 S; Temp 97.6(O); Pulse Ox 100% on R/A; Weight 77.56 kg ha1 (M); Height 5 ft. 5 in. ; 01/01 00:23 BP 155 / 105; Pulse 88; Resp 18; Pulse Ox 100% ; cp4 01:57 BP 167 / 97; Pulse 75; Resp 18; Pulse Ox 100% ; cp4 12/31 23:39 Body Mass Index 28.46 (77.56 kg, 165.1 cm) ha1 MDM: 12/31 23:41 Medical Screening Exam initiated rt 01/01 04:07 Differential Diagnosis Cholecystitis, pancreatitis, gastritis. Data reviewed: vital rt signs, nurses notes, lab test result(s), radiologic studies. Consideration of Admission/Observation Patient was admitted/placed on observation. Management of patient was discussed with the following: Diamond Cutter: Discussed with Dr. Escalera, recommends antibiotics, n.p.o., admission. I considered the following discharge prescriptions or medication management in the emergency department Medications were administered in the Emergency Department. See MAR. Independent interpretation of the following test(s) in the Emergency Department CT Scan: My interpretation is No bowel obstruction seen on interpretation of CT scan images. Care significantly affected by the following chronic conditions: Diabetes, Hypertension. Counseling: I had a detailed discussion with the patient and/or guardian regarding the historical points, exam findings, and any diagnostic results supporting the discharge/admit diagnosis, lab results, radiology results, the need for further work-up and treatment in the hospital. Response to treatment: the patient's symptoms have markedly improved after treatment. 12/31 23:47 Order name: CBC with Diff; Complete Time: 02:23 rt 12/31 23:47 Order name: CMP; Complete Time: 02:23 rt 12/31 23:47 Order name: Lipase; Complete Time: 02:23 rt 12/31 23:47 Order name: Urinalysis w/ reflexes; Complete Time: 02:23 rt 01/01 05:21 Order name: Magnesium EDMS 01/01 05:21 Order name: Phosphorus EDMS 01/01 05:21 Order name: CBC with Automated Diff EDMS 01/01 05:21 Order name: CBC with Automated Diff EDMS 01/01 05:21 Order name: Comprehensive Metabolic Panel EDMS 01/01 05:21 Order name: Comprehensive Metabolic Panel EDMS 01/01 10:53 Order name: Glucose, Ancillary Testing EDMS 01/01 16:33 Order name: Glucose, Ancillary Testing EDMS 12/31 23:47 Order name: CT Abd/Pelvis - IV Contrast Only; Complete Time: 02:33 rt 12/31 23:47 Order name: IV Saline Lock; Complete Time: 00:22 rt 12/31 23:47 Order name: Labs collected and sent; Complete Time: 00:14 rt Administered Medications: 00:14 Drug: GI Cocktail without - (Maalox PO 30 ml, Lidocaine Mucous Membrane 2 % 15 cp4 ml) PO once Route: PO; 03:35 Follow up: Response: No adverse reaction cp4 00:22 Drug: Famotidine IVP 20 mg IVP once; dilute with 10 mL 0.9% NaCl; give over 2 minutes cp4 Route: IVP; Site: right antecubital; 03:35 Follow up: Response: No adverse reaction cp4 00:22 Drug: NS 0.9% IV 1000 ml IV at 1 bolus Per protocol; to be given as a bolus over 60 cp4 minutes Route: IV; Rate: 1 bolus; Site: right antecubital; 03:35 Follow up: IV Status: Completed infusion cp4 00:23 Drug: Ondansetron IVP 4 mg IVP once; over 2 minutes Route: IVP; Site: right antecubital;cp4 03:35 Follow up: Response: No adverse reaction cp4 03:46 Drug: Ketorolac IVP 15 mg IVP once Route: IVP; Site: right antecubital; cp4 04:37 Follow up: Response: No adverse reaction cp4 03:46 Drug: Piperacillin-Tazobactam IVPB 3.375 grams IVPB once over 60 mins; (mix in NS 100 cp4 mL) Route: IVPB; Infused Over: 60 mins; Site: right antecubital; 04:37 Follow up: IV Status: Completed infusion cp4 Disposition Summary: 01/01/25 04:07 Hospitalization Ordered Notes: Hospitalization Status: Inpatient Admission rt Provider: Prince Kennedy rt Condition: Stable rt Problem: new rt Symptoms: have improved rt Bed/Room Type: Standard rt Location: [facility] ER HOLD(01/01/25 05:35) cg Room Assignment: ERHOLD-(01/01/25 05:35) cg Diagnosis - Acute cholecystitis rt Forms: - Medication Reconciliation Form rt - SBAR form rt - Leadership Thank You Letter rt Signatures: Dispatcher [employer] Chica Rosenberg RN RN cg Autumn Torres RN RN ha1 Dwaine Francois MD MD rt Carine Rhodes cp4 Corrections: (The following items were deleted from the chart) 05:35 04:07 Telemetry/MedSurg (Inpatient) rt cg 05:35 04:07 rt cg
--- NOTE | 2025-01-01 04:08 | ER ---
Nurse's Notes [facility] Name: Jelly Hooker Age: 49 yrs Sex: Female : 1975 Arrival Date: 12/31/2024 Time: 23:32 Bed 14 Private MD: Diagnosis: Acute cholecystitis Presentation: 12/31 23:39 Chief complaint: Patient states: [place] EPIGASTRIC PAIN , AND NAUSEA. ha1 01/01 06:50 Coronavirus screen: Client denies travel out of the [place] in the last 14 days. At this cp4 time, the client does not indicate any symptoms associated with coronavirus-19. Ebola Screen: Patient negative for fever greater than or equal to 101.5 degrees Fahrenheit, and additional compatible Ebola Virus Disease symptoms Patient denies exposure to infectious person. Patient denies travel to an Ebola-affected area in the 21 days before illness onset. No symptoms or risks identified at this time. Initial Sepsis Screen: Does the patient meet any 2 criteria? No. Patient's initial sepsis screen is negative. Does the patient have a suspected source of infection? No. Patient's initial sepsis screen is negative. Risk Assessment: Do you want to hurt yourself or someone else? Patient reports no desire to harm self or others. Onset of symptoms was December 31, 2024. 06:50 Acuity: JACKIE 3 cp4 06:50 Method Of Arrival: Ambulatory cp4 Triage Assessment: 12/31 23:39 General: Appears uncomfortable, Behavior is calm, cooperative. Pain: Complains of pain ha1 in epigastric area Pain currently is 8 out of 10 on a pain scale. Quality of pain is described as aching. Neuro: Level of Consciousness is awake, alert, obeys commands, Oriented to person, place, time, situation. Cardiovascular: Patient's skin is warm and dry. Respiratory: Airway is patent Respiratory effort is even, unlabored, Respiratory pattern is regular, symmetrical. GI: Abdomen is round non-distended, Reports epigastric pain, nausea. Musculoskeletal: Circulation, motion, and sensation intact. Range of motion: intact in all extremities. 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 - Infectious Disease History:: Denies. - Social history:: Smoking status: Patient uses street drugs, marijuana. Screenin/27 00:39 [facility] ED Fall Risk Assessment (Adult) History of falling in the last 3 months, cp4 including since admission No falls in past 3 months (0 pts) Confusion or Disorientation No (0 pts) Intoxicated or Sedated No (0 pts) Impaired Gait No (0 pts) Mobility Assist Device Used No (0 pt) Altered Elimination No (0 pt) Score/Fall Risk Level 0 - 2 = Low Risk Oriented to surroundings, Maintained a safe environment, Assessed \T\ reinforced patient's understanding of fall precautions, Hourly rounding (assess needs \T\ fall precautionary measures) done. Abuse screen: Denies threats or abuse. Denies injuries from another. Nutritional screening: No deficits noted. Tuberculosis screening: No symptoms or risk factors identified. Assessment: 00:39 General: Appears in no apparent distress. uncomfortable, Behavior is calm, cooperative, cp4 appropriate for age. Pain: Complains of pain in abdomen and epigastric area Pain does not radiate. Pain currently is 8 out of 10 on a pain scale. Neuro: Level of Consciousness is awake, alert, obeys commands, Oriented to person, place, time, situation. Cardiovascular: Patient's skin is warm and dry. Respiratory: Airway is patent Respiratory effort is even, unlabored. GI: Abdomen is round non-distended, Bowel sounds present X 4 quads. Abd is soft and non tender X 4 quads. : No signs and/or symptoms were reported regarding the genitourinary system. EENT: No signs and/or symptoms were reported regarding the EENT system. Derm: No signs and/or symptoms reported regarding the dermatologic system. Musculoskeletal: No signs and/or symptoms reported regarding the musculoskeletal system. Vital Signs: 12/31 23:39 BP 179 / 106; Pulse 83; Resp 17 S; Temp 97.6(O); Pulse Ox 100% on R/A; Weight 77.56 kg ha1 (M); Height 5 ft. 5 in. ; 01/01 00:23 BP 155 / 105; Pulse 88; Resp 18; Pulse Ox 100% ; cp4 01:57 BP 167 / 97; Pulse 75; Resp 18; Pulse Ox 100% ; cp4 12/31 23:39 Body Mass Index 28.46 (77.56 kg, 165.1 cm) ha1 ED Course: 12/31 23:33 Patient arrived in ED. jj6 23:35 Dwaine Francois MD is Attending Physician. rt 23:53 Carine Rhodes is Primary Nurse. cp4 01/01 00:18 No provider procedures requiring assistance completed. Initial lab(s) drawn, by ok, cp4 sent to lab. Inserted saline lock: 20 gauge in right antecubital area, using aseptic technique. Blood collected. Flushed with 10 mL NS. 00:39 Bed in low position. Call light in reach. Side rails up X 1. cp4 01:30 CT Abd/Pelvis - IV Contrast Only In Process Unspecified. EDMS 04:06 Prince Benavides MD is Hospitalizing Provider. rt 06:51 Triage completed. cp4 06:51 Patient admitted, IV remains in place. cp4 06:51 Arm band placed on right wrist. Patient placed in waiting room. cp4 06:51 Provided Education on: admission. cp4 10:44 Attending Physician role handed off by Dwaine Francois MD eb 10:44 Primary Nurse role handed off by Carine Rhodes eb Administered Medications: 00:14 Drug: GI Cocktail without - (Maalox PO 30 ml, Lidocaine Mucous Membrane 2 % 15 cp4 ml) PO once Route: PO; 03:35 Follow up: Response: No adverse reaction cp4 00:22 Drug: Famotidine IVP 20 mg IVP once; dilute with 10 mL 0.9% NaCl; give over 2 minutes cp4 Route: IVP; Site: right antecubital; 03:35 Follow up: Response: No adverse reaction cp4 00:22 Drug: NS 0.9% IV 1000 ml IV at 1 bolus Per protocol; to be given as a bolus over 60 cp4 minutes Route: IV; Rate: 1 bolus; Site: right antecubital; 03:35 Follow up: IV Status: Completed infusion cp4 00:23 Drug: Ondansetron IVP 4 mg IVP once; over 2 minutes Route: IVP; Site: right antecubital;cp4 03:35 Follow up: Response: No adverse reaction cp4 03:46 Drug: Ketorolac IVP 15 mg IVP once Route: IVP; Site: right antecubital; cp4 04:37 Follow up: Response: No adverse reaction cp4 03:46 Drug: Piperacillin-Tazobactam IVPB 3.375 grams IVPB once over 60 mins; (mix in NS 100 cp4 mL) Route: IVPB; Infused Over: 60 mins; Site: right antecubital; 04:37 Follow up: IV Status: Completed infusion cp4 Medication: 00:39 VIS not applicable for this client. cp4 Outcome: 04:07 Decision to Hospitalize by Provider. rt 06:51 Admitted to ER Hold. Please see [facility] for further documentation. cp4 06:51 Condition: stable 06:51 Instructed on the need for admit, 10:14 Patient left the ED. cm10 17:38 Patient left the ED. cm10 Signatures: Dispatcher [employer] EDMS Cecy Portillo Jennifer jj6 Autumn Torres RN RN ha1 Dwaine Francois MD MD rt Bekah Jain RN RN cm10 Carine Rhodes cp4
--- NOTE | 2025-01-01 05:24 | P.HP ---
Certification for Inpatient Patient admitted to: Observation With expected LOS: <2 Midnights Practitioner: I am a practitioner with admitting privileges, knowledge of patient current condition, hospital course, and medical plan of care. Services: Services provided to patient in accordance with Admission requirements found in Title 42 Section 412.3 of the Code of Federal Regulations Patient History Date of Service: 01/01/25 Reason for admission: abdominal pain History of Present Illness: Patient is a 49 year old female with a PMH of HTN, Type II diabetes mellitus and hypothyroidism. She presents with an epigastric abdominal pain ongoing for the past 2 weeks. She was found to have acute cholecystitis. Patient is hemodynamically stable. She is staying for surgical evaluation. Allergies No Known Allergies Allergy (Verified 02/03/20 21:41) Home Medications: Citalopram [Celexa*] 20 mg PO BEDTIME 02/05/20 Ferrous Fumarate/Folic Acid [Hematinic-Folic Acid Tablet] 1 tab PO DAILY 02/05/20 Quetiapine [Seroquel*] 20 mg PO BEDTIME 02/05/20 Ropinirole HCl [Requip*] 0.5 mg PO DAILY 02/05/20 Zolpidem Tartrate [Ambien] 10 mg PO BEDTIME PRN 02/05/20 Acidophilus/Bulgaricus [Lactinex Tablet Chewable] 1 each PO BID #30 tab.chew 02/06/20 Doxycycline Monohydrate 100 mg PO BID #20 tablet 02/06/20 - Past Medical/Surgical History Diabetic: Yes -: anemia-december 2012, also in 2011 -: DM -: HTN -: anxiety -: tubal ligation-[facility] 2002 -: partial hysterectomy - Social History Alcohol use: Yes CD- Drugs: No Caffeine use: Yes Physical Examination - Physical Exam General: Acute distress HEENT: Atraumatic, Normocephalic Respiratory: Clear to auscultation bilaterally, Normal air movement Cardiovascular: No edema, Normal pulses, Regular rate/rhythm, Normal S1 S2 Gastrointestinal: Soft and benign, Tenderness (epigastric tenderness) Neurological: Normal speech - Studies Laboratory Data (last 24 hrs) 01/01/25 01/01/25 00:09 00:09 WBC 7.00 Hgb 12.3 Hct 37.0 Plt Count 214 Sodium 136 Potassium 3.6 BUN 12 Creatinine 0.81 Glucose 216 H Total Bilirubin 1.3 H AST 194 H ALT 108 H Alkaline Phosphatase 126 H Lipase 35 Assessment and Plan - Problems (Diagnosis) (1) Acute cholecystitis Current Visit: Yes Status: Acute (2) HTN (hypertension) Current Visit: Yes Status: Acute (3) Type II diabetes mellitus Current Visit: Yes Status: Acute (4) Hypothyroidism Current Visit: Yes Status: Acute (5) Diabetes Current Visit: No Status: Acute - Plan Assessment Patient is a 49 year old female currently being admitted for acute cholecystitis. She has a hx of type II diabetes mellitus, HTN and hypothyroidism. She is hemodynamically stable Acute cholecystitis Type II diabetes mellitus HTN Hypothyroidism PLAN: Admit under observation IV fluid and ZOysn MMP regimen and antiemetics NPO General surgery consulted for cholecystectomy - Advance Directives Does patient have a Living Will: No Does patient have a Durable POA for Healthcare: No
[2025-01-01] MEDS: NA CHLORIDE 0.9% 1,000 ML IV SCH (06:00)
[2025-01-01] MEDS ORDERED: NA CHLORIDE 0.9% 1,000 ML ONE ×2 (06:17)
[2025-01-01 07:25] LABS: Magnesium 2.2 mg/dL (1.6-2.4); Phosphorus 2.5 mg/dL (2.5-4.9)
[2025-01-01] MEDS: FLU (Fluarix Triv) TS24-25(6MOS UP)/PF 45 MCG/0.5 ML Syringe IM ONE (07:45)
[2025-01-01] MEDS ORDERED: FLU (Fluarix Triv) TS24-25(6MOS UP)/PF 45 MCG/0.5 ML Syringe IM ONE (08:19)
[2025-01-01] MEDS: PIPER TAZO 3.375 GM in NA CHLORIDE 0.9% 100 ML IV SCH (08:35)
[2025-01-01] MEDS: LIDOCAINE HCL/EPINEPHRINE 20 ML MDV ONE (10:23)
[2025-01-01] MEDS: SUCCINYLCHOLINE 20 MG/ML (10 ML) IV ONE (10:36)
[2025-01-01] MEDS: SUGAMMADEX SODIUM 200 MG/2 ML VIAL IV ONE (10:36)
[2025-01-01] MEDS ORDERED: LIDOCAINE 2% MPF 5 ML VIAL ONE (10:38)
[2025-01-01] MEDS ORDERED: ROCURONIUM 50 MG/5 ML VIAL IV ONE ×2 (10:38→12:17)
[2025-01-01] MEDS ORDERED: ONDANSETRON 4 MG/2 ML VIAL ONE (10:38)
[2025-01-01] MEDS ORDERED: propofoL 200 MG/20 ML VIAL IV ONE (10:38)
[2025-01-01] MEDS ORDERED: FENTANYL CITR 100 MCG/2 ML ONE ×2 (10:39→12:18)
[2025-01-01] MEDS ORDERED: MIDAZOLAM HCL 2 MG/2 ML INJ ONE (10:39)
[2025-01-01] MEDS ORDERED: EPHEDRINE SULF 50 MG/ML VIAL ONE (12:01)
[2025-01-01] MEDS ORDERED: dexAMETHasone 4 MG/ML VIAL ONE (12:55)
[2025-01-01] MEDS ORDERED: HYDROMORPHONE HCL 1 MG/ML INJ ONE (13:04)
[2025-01-01] MEDS: HYDROMORPHONE HCL 1 MG/ML INJ IV PRN (13:10)
--- NOTE | 2025-01-01 13:12 | CON ---
Date of Consultation: 01/01/2025 Brief History Of Present Illness: This is a 49-year-old female with a past medical history of hypertension, diabetes type 2, and hypothyroidism, who presents with approximately 2-week history of epigastric and right upper quadrant abdominal pain, getting progressively worse after yesterday. She states that it is worse with meals and she has not had a similar episode of this intensity, but h as had episodes which were much more mild over the past few months and it is being getting progressiv alexander worse over time, and as such, she came to the emergency room with the above issues. No sick cont acts. No recent travel. No new food exposures. Past Medical History: Significant for anemia, diabetes, hypertension, anxiety. Past Surgical History: Include a partial hysterectomy, tubal ligation. Home Medications: Include Celexa, iron pill, Seroquel, Requip, Ambien, doxycycline, Lactinex chewabl e tablets. Allergies: NO KNOWN DRUG ALLERGIES. Social History: She drinks alcohol socially. She smokes marijuana recreationally as of 2 days ago. She denies any other recreational drug use. Review of Systems: Ten-point review of systems other than HPI, denies. She feels better since being in the hospital wit h pain medication. Physical Examination: General: At the time of my examination, she is awake, alert, and oriented. Psychiatric: She is appropriate, conversive. HEENT: She is normocephalic. Sclerae anicteric. Mucous membranes moist. Oropharynx clear. Neck: Supple without JVD. Chest: Normal to expansion and excursion. Cardiovascular: Regular rate and rhythm. Pulmonary: Clear to auscultation bilaterally. Abdomen: Soft with mild epigastric and right upper quadrant tenderness to palpation. No rebound. N o guarding. No focal peritonitis. Jernigan sign is negative, at this time. Extremities: No clubbing, cyanosis, or edema. Skin: Warm and dry. Laboratory Data: Revealed a white blood count of 7.0, hemoglobin 12.3, hematocrit 37.0, platelet cou nt is 214, neutrophils are 82%. Her sodium 136, potassium 3.6, chloride 104, carbon dioxide 27, BUN 12, creatinine 0.8, glucose is 216, calcium is 8.7, phosphorus 2.5, magnesium 2.2, total bilirubin 1. 3, AST is 194, ALT 108, alkaline phosphatase is 126, lipase is 35. Her urinalysis is essentially neg ative. She has had imaging performed, which included a CT of the abdomen and pelvis, officially read as distended gallbladder with gallbladder wall thickening, could reflect acute cholecystitis in the appropriate clinical setting. Common bile duct is mildly dilated to 6 mm. Left adnexal cyst measuri ng 6 cm. Pelvic ultrasound is recommended in 6-12 weeks. Assessment And Plan: This is a 49-year-old female who comes in with signs and symptoms of acute chol ecystitis, possible choledocholithiasis. 1. IV fluid hydration. 2. Antibiotic coverage. 3. Serial abdominal exams. 4. I have explained the risks, benefits, and alternatives after getting an MRCP prior to surgery to e valuate for possible choledocholithiasis. This is unavailable on weekends, and as such, we will proc eed with an MRCP tomorrow as her symptoms continue to improve. If the MRCP is positive for choledoch olithiasis, I have spoken with Dr. Mariano, the water attendant, to perform an ERCP at that time and we will proceed based on his recommendations. 5. I have also discussed the risks, benefits, and alternatives of laparoscopic possible open cholecys tectomy with indocyanine green and possible contrast cholangiography with possible intraoperative lap aroscopic common bile duct exploration including, but not limited to, bleeding; infection; damage to surrounding tissue; need for further operative procedures; injury to bile ducts and intestines; blood clots; heart attack; strokes; other unforeseen complication in the perioperative period. The patien t displayed understanding of the above-stated plan and agreed to proceed as indicated. Thank you for this interesting consult. JACKLYN/BEAN Voice ID: [id number] Report ID: [id number]
[2025-01-01] MEDS: ACETAMINOPHEN 500 MG TAB PO PRN (20:08)
[2025-01-01] MEDS: ONDANSETRON 4 MG/2 ML VIAL IV PRN (23:27)
[2025-01-02 05:12] LABS: Absolute Eosinophils 0.4 K/uL (0-0.5); Absolute Lymphocytes (CBC) 1.3 K/uL (0.7-4.9); Absolute Monocytes 0.4 K/uL (0.1-1.3); Absolute Neutrophil 2.7 K/uL (1.8-8.0); Basophils % 0.4 % (0-1.3); Eosinophils % 8.5 % (0-4.4); Hematocrit 32.9 % (36.0-45.0); Lymphocytes % 26.7 % (15.3-44.8); MCH 26.3 pg (27.0-35.0); MCHC 33.5 g/dL (32.0-36.0); MCV 78.5 fL (80-100); MPV 8.2 fL (7.6-11.3); Monocytes % 8.8 % (3.3-12.3); Neutrophils % 55.6 % (41.7-73.7); Nucleated Red Blood Cells % 0.1 % (0-0); Platelets 186 thou/uL (152-406); RBC Red Blood Cell Count 4.19 M/uL (3.86-4.86); Red Cell Distribution Width 15.3 % (12.1-15.2)
[2025-01-02 05:19] LABS: Albumin 2.9 g/dL (3.4-5.0); Albumin/Globulin Ratio 0.9 (1.1-1.8); Anion Gap 8.1 mEq/L (5.0-15.0); Bilirubin Total 0.8 mg/dL (0.2-1.0); Globulin 3.3 g/dL (2.3-3.5); Potassium 4.1 mEq/L (3.5-5.1); Protein, Total 6.2 g/dL (6.4-8.2)
--- NOTE | 2025-01-02 08:15 | P.PN ---
Date of Service: 01/02/25 Subjective: dealing with intermittent epigastric pain, nausea for 2 weeks breathing okay on room air denies orther issues NPO for MRCP afebrile Physical Exam: GEN: Alert, oriented, NAD CV: Regular rate and rhythm, no edema Pulm: Nonlabored respirations on room air, clear bilaterally ABD: soft, epigastric tenderness, nondistended Neuro: Normal speech, normal affect Problem List: Acute cholecystitis 6 cm left adnexal cystic lesion, incidental finding Hypertension Hypothyroidism NIDDM2 Acute cholecystitis on admission, presents with intermittent epigastric pain x2 weeks associated with nausea. CT abd noted distended gallbladder with gallbladder wall thickening. CBD mildly dilated, 6mm Dr. Escalera, general surgeon consulted empiric IV zosyn (01/01-) pain control 01/02 - NPO for MRCP to r/o choledocholithiasis trend LFTs - AST/ALT improving. T. bili resolved. 6 cm left adnexal cystic lesion, incidental finding CT abdomen incidentally noted 6 cm left adnexal cystic lesion f/u PCP outpatient. Consider f/u ultrasound in 6-12 weeks to re-eval Hypertension Hypothyroidism NIDDM2 confirm home meds, restart as appropriate Code: Full Dispo: Home Pending surgical recs, MRCP Time Spent Managing Pts Care (In Minutes): 55
[2025-01-02] MEDS: D5 0.45 NS 1,000 ML IV SCH (08:24)
[2025-01-02] MEDS: LORazepam 2 MG/ML VIAL IV PRN (09:14)
--- NOTE | 2025-01-02 12:00 | RAD REPORT ---
EXAMINATION: MR CHOLANGIOGRAM CLINICAL INDICATION: Female, 49 years old. rule out choledocholithiasis TECHNIQUE: Multiplanar, multisequence MR imaging of the abdomen without intravenous contrast, and wit h specific attention to the biliary system. Unless otherwise specified, incidental findings do not require dedicated imaging follow-up. 3D MIP reconstruction performed. COMPARISON: No prior exam. FINDINGS: GALLBLADDER: Moderate pericholecystic fluid with gallbladder distention seen. BILE DUCTS: No biliary ductal dilatation. There is no evidence of common duct stone. LIVER: Normal in size, contour, and signal without evidence of fatty infiltration or iron deposition. No focal lesion. PANCREAS: Normal signal. No mass, ductal dilation, or heath-pancreatic fluid. LYMPH NODES: No lymphadenopathy. IMPRESSION: No findings suspicious for choledocholithiasis. The biliary tree is normal caliber. Moderate pericholecystic fluid and mild gallbladder distention seen.
--- NOTE | 2025-01-02 12:04 | P.PN ---
Date of Service: 01/02/25 Subjective: dealing with intermittent epigastric pain, nausea for 2 weeks breathing okay on room air denies orther issues NPO for MRCP afebrile Physical Exam: GEN: Alert, oriented, NAD CV: Regular rate and rhythm, no edema Pulm: Nonlabored respirations on room air, clear bilaterally ABD: soft, epigastric tenderness, nondistended Neuro: Normal speech, normal affect Problem List: Acute cholecystitis 6 cm left adnexal cystic lesion, incidental finding Hypertension Hypothyroidism NIDDM2 Acute cholecystitis on admission, presents with intermittent epigastric pain x2 weeks associated with nausea. CT abd noted distended gallbladder with gallbladder wall thickening. CBD mildly dilated, 6mm Dr. Escalera, general surgeon consulted empiric IV zosyn (01/01-) pain control 01/02 - NPO for MRCP to r/o choledocholithiasis trend LFTs - AST/ALT improving. T. bili resolved. MRCP negative for choledocholithiasis, does show pericholecystic fluid and gallbladder distention 6 cm left adnexal cystic lesion, incidental finding CT abdomen incidentally noted 6 cm left adnexal cystic lesion f/u PCP outpatient. Consider f/u ultrasound in 6-12 weeks to re-eval Hypertension Hypothyroidism NIDDM2 confirm home meds, restart as appropriate Code: Full Dispo: Home Pending surgical recs, MRCP Time Spent Managing Pts Care (In Minutes): 55
[2025-01-03 04:37] LABS: Hematocrit 32.6 % (36.0-45.0); MCH 26.1 pg (27.0-35.0); MCHC 33.6 g/dL (32.0-36.0); MCV 77.5 fL (80-100); MPV 8.3 fL (7.6-11.3); Platelets 181 thou/uL (152-406); Red Cell Distribution Width 14.9 % (12.1-15.2)
[2025-01-03 04:59] LABS: Albumin 2.8 g/dL (3.4-5.0); Albumin/Globulin Ratio 0.8 (1.1-1.8); Anion Gap 8.2 mEq/L (5.0-15.0); Bilirubin Total 0.4 mg/dL (0.2-1.0); Globulin 3.6 g/dL (2.3-3.5); Potassium 4.2 mEq/L (3.5-5.1); Protein, Total 6.4 g/dL (6.4-8.2)
[2025-01-03] MEDS: LOSARTAN POTASSIUM 50 MG TABLET PO SCH (09:12)
--- NOTE | 2025-01-03 09:22 | P.PN ---
Date of Service: 01/03/25 Subjective: dealing with intermittent epigastric pain, nausea for 2 weeks breathing okay on room air denies orther issues MRCP negative afebrile Physical Exam: GEN: Alert, oriented, NAD CV: Regular rate and rhythm, no edema Pulm: Nonlabored respirations on room air, clear bilaterally ABD: soft, epigastric tenderness, nondistended Neuro: Normal speech, normal affect Problem List: Acute cholecystitis 6 cm left adnexal cystic lesion, incidental finding Hypertension Hypothyroidism NIDDM2 Acute cholecystitis on admission, presents with intermittent epigastric pain x2 weeks associated with nausea. CT abd noted distended gallbladder with gallbladder wall thickening. CBD mildly dilated, 6mm Dr. Escalera, general surgeon consulted empiric IV zosyn (01/01-) pain control 01/02 - NPO for MRCP to r/o choledocholithiasis trend LFTs - AST/ALT improving. T. bili resolved. MRCP negative for choledocholithiasis, does show pericholecystic fluid and gallbladder distention 01/03 plan for lap pamela with general surgery 6 cm left adnexal cystic lesion, incidental finding CT abdomen incidentally noted 6 cm left adnexal cystic lesion f/u PCP outpatient. Consider f/u ultrasound in 6-12 weeks to re-eval Hypertension Hypothyroidism NIDDM2 confirm home meds, restart as appropriate Code: Full Dispo: Home 24-48 hours Time Spent Managing Pts Care (In Minutes): 55
[2025-01-03] MEDS ORDERED: FENTANYL CITR 100 MCG/2 ML ONE (12:39)
[2025-01-03] MEDS ORDERED: ROCURONIUM 50 MG/5 ML VIAL IV ONE (12:39)
[2025-01-03] MEDS ORDERED: propofoL 200 MG/20 ML VIAL IV ONE (12:39)
[2025-01-03] MEDS ORDERED: LIDOCAINE 1% MPF 5 ML VIAL ONE (12:39)
[2025-01-03] MEDS: NA CHLORIDE 0.9% 1,000 ML ONE (12:41)
[2025-01-03] MEDS ORDERED: MIDAZOLAM HCL 2 MG/2 ML INJ ONE (12:42)
[2025-01-03] MEDS ORDERED: ONDANSETRON 4 MG/2 ML VIAL ONE (12:50)
[2025-01-03] MEDS: LIDOCAINE HCL/EPINEPHRINE 20 ML MDV ONE (13:17)
--- NOTE | 2025-01-03 13:57 | P.OP ---
Preoperative diagnosis: Acute Cholecystitis Postoperative diagnosis: Acute Cholecystitis Primary procedure: Laparoscopic Cholecystectomy with ICG Cholangiography Anesthesia: GETA + Local Estimated blood loss: <5cc Specimen: Gallbladder Findings: Distended Gallbladder, Cholecystitis Complications: None () Transferred to: Recovery Room Condition: Good
[2025-01-03] MEDS: HYDROMORPHONE HCL 1 MG/ML INJ ONE (14:17)
[2025-01-03] MEDS: HYDRALAZINE HCL 20 MG/ML VIAL ONE (14:25)
--- NOTE | 2025-01-03 15:33 | CON ---
Date of Consultation: 01/02/2025 Brief History Of Present Illness: The patient is a 49-year-old female who comes in with a history of hypertension, diabetes, and hypothyroidism on 01/01/2025, complaining of epigastric abdominal pain b eginning 2 weeks prior to her arrival. It progressively got worse, was located in the right upper qu adrant and epigastrium, associated with some mild nausea, but no vomiting. She had similar episodes before in the past, but never at this level of severity. She was admitted to the hospital and found to have evidence of acute cholecystitis with the inflation of her liver transaminases. Past Medical History: Hypertension, diabetes, hypothyroidism, anxiety. Allergies: NO KNOWN DRUG ALLERGIES. Home Medications: Include Celexa, Seroquel, Requip, Ambien, Lactinex, intermittent doxycycline from 2019. Past Medical History: Anemia, diabetes, hypertension, anxiety. Past Surgical History: Tubal ligation, partial hysterectomy. Social History: She denies smoking, other than marijuana. She drinks alcohol recreationally as well . DICTATION ENDS HERE. JACKLYN/BEAN Voice ID: [id number] Report ID: [id number]
--- NOTE | 2025-01-04 01:08 | OP ---
Date of Procedure: 01/03/2025 Surgeon: Marcellus Escalera MD, Preoperative Diagnosis: Acute cholecystitis. Postoperative Diagnosis: Acute cholecystitis. Procedure Performed: Laparoscopic cholecystectomy with indocyanine green cholangiography. Anesthesia: General endotracheal plus local with 1% lidocaine. Estimated Blood Loss: 5 cc. Specimen: Gallbladder. Findings: 1. Distended gallbladder. 2. Cholecystitis. Complications: None. Condition: The patient was transferred to the recovery room in good condition. Procedure In Detail: After informed consent was obtained, the patient was brought to the operating r oom, prepped and draped in the usual sterile fashion after adequate anesthesia was achieved. I anest hetized an area in the supraumbilical position of the subcutaneous tissues. A 5 mm 0-degree __ optical trocar was introduced into the abdomen without incident or complication. Insufflation was obtained to 15 mmHg at this time. There was no injury to vital structures upon entry into the abdom en. Two additional trocars were placed, one in the epigastrium and one in the right upper quadrant. Both of these were similarly anesthetized, sharply incised, and a 5 mm trocar was placed under direc t vision without incident or complication. The gallbladder was then grasped, placed towards the jase ent's right shoulder, and dissection continued down to the Monica pouch of the gallbladder after th e patient was positioned appropriately in the head up right-side up position. I dissected out 2 stru ctures and identified both cystic duct and cystic artery. There were significant inflammatory change s consistent with a hydropic appearance of the Monica pouch of the gallbladder. The critical view of safety was obtained. After skeletonizing these 2 structures, indocyanine green cholangiography co nfirmed the position of the cystic duct common duct confluence away from the proposed transection sit e. At this point, the double titanium clips on the proximal and single on the distal side of both th e cystic duct and cystic artery were verified to be in good position. I then made ligation with Endo Annika. At this point, the gallbladder was removed from the hepatic fossa without incident or compl ication using electrocautery. Significant hydropic appearance was appreciated. At this point. The gallbladder was removed, placed in an Endo Catch bag, removed with an umbilical trocar and sent off f or pathologic examination. The abdomen was reinsufflated at this point. The area was copiously irri gated, inspected for additional hemostasis. Minimum hemostatic was required at this point on the lat eral aspect of the gallbladder bed. At this point, the area was inspected one last time, irrigated, suctioned out completely dry, and under decreased pneumoperitoneum, there was no evidence of bleeding at this point. I suctioned out the remaining effluent. The patient was positioned back into neutra l position. Additional effluent was suctioned out. Clips remained in good anatomic position. ICG c holangiography confirmed no leakage about the end of the procedure. I then closed the 12 mm trocar s ite using a Kelby-Landen suture passer with 0 Vicryl in interrupted fashion with good approximatio n of the tissues. The abdomen was desufflated under direct visualization without incident or complic ation. Remaining trocars were removed. All skin incisions were then copiously irrigated and closed with a 4-0 Monocryl in a running fashion and Dermabond was placed on top. The patient tolerated proc edure without incident or complication, and transferred to PACU in good condition. All counts were c orrect at the end of the case. TK/MODL Voice ID: [id number] Report ID: [id number]
[2025-01-04 06:38] VITALS: BMI 28.4
[2025-01-04] MEDS: LEVOTHYROXINE SOD 0.075 MG TAB PO SCH (06:52)
[2025-01-04] MEDS: HYDROCODONE/APAP 5/325 MG TAB PO PRN (07:47)
[2025-01-04 08:10] LABS: Hematocrit 31.3 % (36.0-45.0); Hemoglobin 10.3 g/dL (12.0-15.0); MCH 25.8 pg (27.0-35.0); MCHC 32.9 g/dL (32.0-36.0); MCV 78.5 fL (80-100); MPV 8.5 fL (7.6-11.3); Platelets 173 thou/uL (152-406); RBC Red Blood Cell Count 3.99 M/uL (3.86-4.86); Red Cell Distribution Width 15.2 % (12.1-15.2)
[2025-01-04 08:29] LABS: Albumin 2.7 g/dL (3.4-5.0); Albumin/Globulin Ratio 0.8 (1.1-1.8); Anion Gap 5.5 mEq/L (5.0-15.0); Bilirubin Total 0.3 mg/dL (0.2-1.0); Globulin 3.3 g/dL (2.3-3.5); Potassium 3.5 mEq/L (3.5-5.1)
[2025-01-04] MEDS ORDERED: HOME MED 1 EA UNK (Losartan Potassium [Losartan Potassium] 25 MG Tablet) PO SCH (09:00)
[2025-01-04 09:16] VITALS: TEMP 98
[2025-01-04] MEDS: HYDRALAZINE HCL 20 MG/ML VIAL IV ONE (09:28)
[2025-01-04 10:35] VITALS: O2SAT 98
[2025-01-04] MEDS ORDERED: HYDROCODONE/APAP 7.5/325 MG TAB PO PRN (13:49)
[2025-01-04] MEDS: AMLODIPINE 5 MG TAB PO ONE (13:56)
[2025-01-04 13:57] VITALS: BP 170/79
--- NOTE | 2025-01-04 14:53 | P.DS ---
Admission Date: 01/02/25 Discharge Date: 01/04/25 Disposition: ROUTINE DISCHARGE Discharge Condition: GOOD Reason for Admission: abdominal pain Brief History of Present Illness: Patient is a 49 year old female with a PMH of HTN, Type II diabetes mellitus and hypothyroidism. She presents with an epigastric abdominal pain ongoing for the past 2 weeks. She was found to have acute cholecystitis. Patient is hemodynamically stable. She is staying for surgical evaluation. Hospital Course: Problem List: Acute cholecystitis 6 cm left adnexal cystic lesion, incidental finding Hypertension Hypothyroidism NIDDM2 Patient was admitted to the hospital for abdominal pain, acute cholecystitis. She advised elevations in her LFTs which improved, MRCP was performed which was negative for obstructive findings. Patient underwent laparoscopic cholecystectomy in 01/03 and has been doing well postoperatively. She stable for discharge and outpatient follow-up with her PCP/general surgery. Additionally she is noted to have a sick centimeter left adnexal cystic lesion which was an incidental finding on her CT scan recommended follow-up ultrasound in 6 to 12 weeks for reevaluation Patient reports that she was taking losartan and lisinopril at home for her blood pressure, recommend discontinuing losartan, continue lisinopril and have added prescription for amlodipine for better blood pressure control. Recommend checking blood pressure at home daily and following up with primary care doctor Vital Signs/Physical Exam: Temp Pulse Resp BP Pulse Ox 98.0 F 68 15 170/79 H 97 01/04/25 12:00 01/04/25 13:56 01/04/25 12:00 01/04/25 13:56 01/04/25 12:00 General: Alert, In no apparent distress, Oriented x3 HEENT: Atraumatic, PERRLA Neck: Supple, JVD not distended Respiratory: Clear to auscultation bilaterally, Normal air movement Cardiovascular: Regular rate/rhythm, Normal S1 S2 Gastrointestinal: Normal bowel sounds, No tenderness Musculoskeletal: No tenderness Integumentary: No rashes Neurological: Normal speech Laboratory Data at Discharge: WBC 6.40 thou/uL (4.3-10.9) 01/04/25 07:52 Hgb 10.3 g/dL (12.0-15.0) L 01/04/25 07:52 Hct 31.3 % (36.0-45.0) L 01/04/25 07:52 Plt Count 173 thou/uL (152-406) 01/04/25 07:52 Sodium 139 mEq/L (136-145) 01/04/25 07:52 Potassium 3.5 mEq/L (3.5-5.1) D 01/04/25 07:52 BUN 3 mg/dL (7-18) L 01/04/25 07:52 Creatinine 0.65 mg/dL (0.55-1.02) 01/04/25 07:52 Glucose 124 mg/dL (74-106) H 01/04/25 07:52 Phosphorus 2.5 mg/dL (2.5-4.9) 01/01/25 06:55 Magnesium 2.2 mg/dL (1.6-2.4) 01/01/25 06:55 Total Bilirubin 0.3 mg/dL (0.2-1.0) 01/04/25 07:52 AST 27 U/L (15-37) 01/04/25 07:52 ALT 88 U/L (13-56) H 01/04/25 07:52 Alkaline Phosphatase 111 U/L (45-117) 01/04/25 07:52 Lipase 35 U/L (13-75) 01/01/25 00:09 Home Medications: Alprazolam [Xanax] 0.5 mg PO BEDTIME 01/01/25 Levothyroxine [Synthroid*] 0.075 mg PO [id number] 01/01/25 Lisinopril [Zestril] 10 mg PO DAILY 01/01/25 Amlodipine [Norvasc*] 5 mg PO DAILY #30 tab 01/04/25 New Medications: Amlodipine [Norvasc*] 5 mg PO DAILY #30 tab Physician Discharge Instructions: Patient was admitted to the hospital for abdominal pain, acute cholecystitis. She advised elevations in her LFTs which improved, MRCP was performed which was negative for obstructive findings. Patient underwent laparoscopic cholecystectomy in 01/03 and has been doing well postoperatively. She stable for discharge and outpatient follow-up with her PCP/general surgery. Additionally she is noted to have a sick centimeter left adnexal cystic lesion which was an incidental finding on her CT scan recommended follow-up ultrasound in 6 to 12 weeks for reevaluation Patient reports that she was taking losartan and lisinopril at home for her blood pressure, recommend discontinuing losartan, continue lisinopril and have added prescription for amlodipine for better blood pressure control. Recommend checking blood pressure at home daily and following up with primary care doctor Diet: Alpine Activity: No lifting more than 10 lbs Followup: Marcellus Escalera MD [ACTIVE - CAN ADMIT] - Guille Enriquez MD [Primary Care Provider] - Time spent managing pt's care (in minutes): 47
--- NOTE | 2025-01-05 11:58 | EKG ---
Test Date: 2025-01-03 Test Time: 14:45:22 Bathroom Tiling Professional: YOANDY MEASUREMENT RESULTS: Intervals: Rate: 64 TN: 148 QRSD: 84 QT: 444 QTc: 458 [place]: P: 63 TN: 148 QRS: 71 T: 137 INTERPRETIVE STATEMENTS: Normal sinus rhythm T wave abnormality, consider inferior ischemia T wave abnormality, consider anterolateral ischemia Abnormal ECG No previous ECG available for comparison Electronically Signed On 01-05-25 11:55:55 CDT by Adan Gupta
== END 2025-01-04 15:51 | disposition home or self-care (01) | DRG 419 ==
LOC: ER 23:32 → ERHOLD 01-01 05:17 → 2ND 01-01 17:21 → OBSVTOIN 01-02 15:25
PROVIDERS: ADMIT Internal Medicine; ATTEND Internal Medicine
PROC: BF52200 Other Imaging of Gallbladder using Fluorescing Agent, Indocyanine Green Dye, Intraoperative (ICD-10-PCS; 2025-01-03)
PROC: 0FT44ZZ Resection of Gallbladder, Percutaneous Endoscopic Approach (ICD-10-PCS; principal; 2025-01-03 12:30)
DX: K81.0 Acute cholecystitis (principal); E11.9 Type 2 diabetes mellitus without complications; I10 Essential (primary) hypertension; E03.9 Hypothyroidism, unspecified; Z79.890 Hormone replacement therapy; Z79.899 Other long term (current) drug therapy; Z90.710 Acquired absence of both cervix and uterus
CPT/HCPCS: 36415; 74177; 74181; 80053; 81003; 82947; 83690; 83735; 84100; 85025; 85027; 88304; 90656; 93005; 96361; 96365; 96375; 99285; G0378; J0360; J1100; J1171; J2003; J2250; J2405; J2543; J2704; J3010; J7030; J7799; Q9967